=== PATIENT | female | born 1970 | race Asian ===

== ENCOUNTER 2016-09-26 11:07 | Inpatient (IN) | payer OTHER ==
[~2016-09-26] VITALS: Ht 157.5 cm; Wt 74.8 kg
--- NOTE | 2016-09-26 11:22 | ERA ---
ER Documentation Chief Complaint Date/Time DATE: 09/26/16 TIME: 11:22 Chief Complaint sent by pmd for low hgb and needs transfusion. pale and gen fatigue. 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 She is also complaining of mild, gradual onset of generalized headache which has had over the last several days. Generalized weakness but no visual changes, focal weakness or numbness. Denies chest pain, palpitations or shortness of breath. Denies abdominal pain, nausea, vomiting, diarrhea or constipation. No hematemesis or hematochezia. No melanotic stools. Denies dysuria, polyuria or flank pain. No relieving or exacerbating factors. No fevers or chills. ROS All systems reviewed and are negative except as per history of present illness. Medications Home Meds Reported Medications Pantoprazole* (Pantoprazole*) 40 Mg Tablet.dr, 40 MG PO AC BREAKFAST, TAB 09/26/16 Aspirin* (Aspirin* Chew) 81 Mg Tab.chew, 81 MG PO DAILY, TAB.CHEW 09/26/16 Ruxolitinib Phosphate (Jakafi) 10 Mg Tablet, 10 MG PO BID, TAB 09/26/16 Warfarin Sodium* (Coumadin*) 10 Mg Tablet, 10 MG PO DAILY, TAB 09/26/16 Allergies Allergies: Coded Allergies: No Known Allergy (Unverified , 09/26/16) PMhx/Soc Reviewed in chart. As per HPI. Hx Alcohol Use: No Hx Substance Use: No Hx Tobacco Use: No FmHx No stroke or cancer Physical Exam Vitals Vital Signs Date Time Temp Pulse Resp B/P Pulse Ox O2 Delivery O2 Flow Rate FiO2 09/26/16 13:40 98.4 71 20 109/76 99 Room Air 09/26/16 11:40 98.2 78 21 113/70 99 Room Air 09/26/16 11:08 98.2 92 21 113/70 99 Physical Exam Const: Alert, anxious but in no acute distress. Head: Atraumatic Eyes: Pale Conjunctiva ENT: Normal External Ears, Nose and Mouth. Neck: Full range of motion. No meningismus. Resp: Clear to auscultation bilaterally Cardio: Regular rate and rhythm, no murmurs Abd: Soft, non tender, non distended. Normal bowel sounds. Rectal exam: Normal tone, brown stool. Skin: No petechiae or rashes Back: No midline or flank tenderness Ext: No cyanosis, or edema Neur: Awake and alert. Cranial nerves II through XII are grossly intact. No focal deficit. Psych: Patient appears anxious but not depressed. Result Diagram: 09/26/16 1131 09/26/16 1131 Results 24 hrs Laboratory Tests Test 09/26/16 11:31 09/26/16 13:27 Activated Partial Thromboplast Time 51.7Sec Alanine Aminotransferase (ALT/SGPT) 39IU/L Albumin 4.0g/dl Albumin/Globulin Ratio 1.29 Alkaline Phosphatase 135IU/L Ammonia 29umol/l Anion Gap 15 Aspartate Amino Transf (AST/SGOT) 43IU/L Basophils # 0.010^3/ul Basophils % 0.1% Blood Morphology Comment Blood Urea Nitrogen 13mg/dl Calcium Level 9.4mg/dl Carbon Dioxide Level 27mmol/L Chloride Level 105mmol/L Creatinine 0.86mg/dl Direct Bilirubin 0.00mg/dl Eosinophils # 0.110^3/ul Eosinophils % 1.7% Globulin 3.10g/dl Glucose Level 100mg/dl Hematocrit 25.0% Hemoglobin 8.4g/dl INR International Normalized Ratio 2.18 Indirect Bilirubin 1.4mg/dl Lymphocytes # 0.410^3/ul Lymphocytes % 12.8% Mean Corpuscular Hemoglobin 23.1pg Mean Corpuscular Hemoglobin Concent 33.5g/dl Mean Corpuscular Volume 69.0fl Mean Platelet Volume 7.7fl Monocytes # 0.110^3/ul Monocytes % 4.4% Neutrophils # 2.610^3/ul Neutrophils % 81.0% Nucleated Red Blood Cells # 0.110^3/ul Nucleated Red Blood Cells % 2.0/100WBC Platelet Count 40131^3/UL Potassium Level 4.4mmol/L Prothrombin Time 24.5Sec Prothrombin Time Ratio 1.9 Red Blood Count 3.6210^6/ul Red Cell Distribution Width 26.5% Sodium Level 143mmol/L Total Bilirubin 1.4mg/dl Total Protein 7.1g/dl White Blood Count 3.210^3/ul Stool Occult Blood NEGATIVE Current Medications Medications (Trade) Dose Ordered Sig/Alissa Route PRN Reason Start Time Stop Time Status Last Admin Dose Admin Ondansetron HCl (Zofran Inj) 4 mg BRIDGE ORDER PRN IV NAUSEA AND/OR VOMITING 09/26/16 15:30 09/27/16 15:29 Acetaminophen 650 mg 650 mg ER BRIDGE PRN PO MILD PAIN/FEVER 09/26/16 15:30 09/27/16 15:29 Dextrose/Sodium Chloride (D5-1/2ns) 1,000 ml @ 100 mls/hr Q10H IV 09/26/16 15:11 UNV IV Flush (NS 3 ml) 3 ml PER PROTOCOL IV 09/26/16 15:30 UNV Ondansetron HCl (Zofran Inj) 4 mg Q6H PRN IV NAUSEA AND/OR VOMITING 09/26/16 15:30 UNV Acetaminophen/ Hydrocodone Bitart ([place] (5/325)) 1 tab Q6H PRN PO MODERATE PAIN LEVEL 4-6 09/26/16 15:30 UNV Morphine Sulfate (morphine) 2 mg Q4H PRN IV SEVERE PAIN LEVEL 7-10 09/26/16 15:30 UNV Magnesium Hydroxide (Milk Of Mag) 30 ml DAILY PRN PO CONSTIPATION 09/26/16 15:30 UNV Bisacodyl (Dulcolax) 5 mg DAILY PRN PO CONSTIPATION 09/26/16 15:30 UNV Pantoprazole (Protonix Tab) 40 mg DAILY@06 PO 09/27/16 06:00 UNV Ferrous Sulfate (Ferrous Sulfate (Ec)) 325 mg TID PO 09/26/16 21:00 UNV Miscellaneous Information 10 mg BID PO 09/26/16 21:00 UNV Procedures/MDM DOCUMENTS REVIEWED: ED nurse, medical records from [facility]. 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 History of esophageal varices but heme negative without evidence of GI bleeding. Anemia with significant hemoglobin drop from 12.7 on 08/06/2016 2 8.4 today, likely secondary to myeloproliferative disorder. Cephalgia of uncertain etiology. No CT evidence of bleed, stroke or infarct. Headache not consistent with subarachnoid hemorrhage, meningitis or encephalitis hence lumbar puncture not indicated. Patient will be admitted to [facility] for further evaluation and management. Counseled patient and family regarding diagnosis, diagnostic results and plan for admission. CALLS/CONSULTS: Time 13:45, Dr. Lopez, Recommends admission to [facility] a GI consult with Dr. Cisse CALLS/CONSULTS: Time 14:00, Dr. Cisse, will consult. PATIENT CARE TRANSITIONED: Time: 14:00, Dr. Lopez. Departure Diagnosis: Primary Impression: Severe anemia Additional Impressions: Myeloproliferative disorder Budd-Chiari syndrome Liver cirrhosis Qualified Code: K74.60 - Cirrhosis of liver without ascites, unspecified hepatic cirrhosis type Condition: Serious KARL BECKWITH MD Sep 26, 2016 11:22
[2016-09-26 11:47] LABS: BASOPHILS % 0.1 % (0.0-2.0); EOSINOPHILS # 0.1 10^3/ul (0.0-0.5); EOSINOPHILS % 1.7 % (0.0-7.0); HEMOGLOBIN 8.4 g/dl (12.0-16.0); LYMPHOCYTES # 0.4 10^3/ul (0.8-2.9); LYMPHOCYTES % 12.8 % (15.0-51.0); MEAN CORPUSCULAR HEMOGLOBIN 23.1 pg (29.0-33.0); MEAN CORPUSCULAR HGB CONC 33.5 g/dl (32.0-37.0); MEAN PLATELET VOLUME 7.7 fl (7.4-10.4); MONOCYTE # 0.1 10^3/ul (0.3-0.9); MONOCYTES % 4.4 % (0.0-11.0); NEUTROPHIL # 2.6 10^3/ul (1.6-7.5); PLATELET COUNT 223 10^3/UL (140-440); RED BLOOD COUNT 3.62 10^6/ul (4.20-5.40); RED CELL DISTRIBUTION WIDTH 26.5 % (11.5-14.5); UNCORRECTED WBC 3.2 10^3/ul (4.8-10.8); WHITE BLOOD COUNT 3.2 10^3/ul (4.8-10.8)
[2016-09-26 11:48] LABS: CONDITION 1; LH ANALYZER COMMENTS 1; NUCLEATED RED BLOOD CELLS # 0.1 10^3/ul (0.0-0.0); SUSPECT 1
[2016-09-26 11:53] LABS: INR 2.18; PROTIME 24.5 Sec (12.2-14.2); PT RATIO 1.9
[2016-09-26 11:54] LABS: PARTIAL THROMBOPLASTIN TIME 51.7 Sec (25.0-35.0)
[2016-09-26 11:57] LABS: POTASSIUM 4.4 mmol/L (3.5-5.1)
[2016-09-26 11:59] LABS: ALBUMIN/GLOBULIN RATIO 1.29; BILIRUBIN,INDIRECT 1.4 mg/dl (0-1.1); BILIRUBIN,TOTAL 1.4 mg/dl (0.2-1.3); CREATININE 0.86 mg/dl (0.44-1.00); TOTAL PROTEIN 7.1 g/dl (6.1-8.1)
[2016-09-26 12:00] LABS: CALCIUM 9.4 mg/dl (8.4-10.2)
[2016-09-26] MEDS ORDERED: WARF10TA PO (12:04)
[2016-09-26] MEDS ORDERED: PANT40TA4 PO (12:05)
[2016-09-26] MEDS ORDERED: ASPI81TA3 PO (12:05)
[2016-09-26] MEDS ORDERED: RUXO10TA PO (12:05)
--- NOTE | 2016-09-26 13:34 | RADRPT ---
PROCEDURE: CT Head without contrast. CLINICAL INDICATION: Headaches TECHNIQUE: The study was performed utilizing a GE 64-slice multidetector CT scanner. Direct spiral axial CT images of the brain were obtained from the vertex to the skull base without contrast. The CTDI vol is 44.19 mGy and the DLP is 720.23 mGy-cm. The images were reviewed on a PACS workstation. COMPARISON: No prior studies are available for comparison. FINDINGS: The ventricles and cortical sulci are within normal limits. The garcia-white matter differentiation i s maintained. No intra or extra-axial fluid collection or mass effect or shift in the midline struc tures is seen. The visualized paranasal sinuses, mastoid air cells, orbits, and calvarium are unrem arkable. IMPRESSION: Unremarkable CT of the head without contrast. RPTAT: HPNM Physician Avi Date Time Electronically viewed and signed by Physician Avi on 09/26/2016 13:34 /
[2016-09-26] MEDS ORDERED: BISACODYL (EC) 5 MG TAB PO PRN (15:30)
[2016-09-26] MEDS ORDERED: ONDANSETRON 4 MG INJ IV PRN ×2 (15:30)
[2016-09-26] MEDS ORDERED: MAGNESIUM HYDROXIDE 30ML CUP PO PRN (15:30)
[2016-09-26] MEDS ORDERED: morphine 2 MG INJ IV PRN (15:30)
[2016-09-26] MEDS ORDERED: ACETAMINOPHEN 325 MG TAB PO PRN (15:30)
[2016-09-26] MEDS ORDERED: NACL 0.9% 3 ML SYG IV SCH (15:30)
[2016-09-26] MEDS: DEXTROSE 5%-0.45% NACL 1,000 ML IV SCH (15:44)
[2016-09-26 16:05] VITALS: TEMP 98.6
[2016-09-26] MEDS ORDERED: SOD CHLORIDE 0.9% 250 ML IV* ONE (16:06)
[2016-09-26] MEDS ORDERED: FUROSEMIDE 40 MG INJ IV SCH (16:30)
[2016-09-26 16:34] LABS: IRON 81 ug/dl (35-150)
[2016-09-26 16:42] LABS: RETICULOCYTE COUNT % 3.1 % (0.5-1.5)
[2016-09-26 16:43] LABS: TOTAL IRON BINDING CAPACITY 225 ug/dl (241-421)
[2016-09-26 16:51] VITALS: BMI 39.1
[2016-09-26 17:04] VITALS: BP 114/74; PULSE 87; RESP 18
[2016-09-26] MEDS: HYDROCODONE/APAP (5/325) TAB PO PRN (17:20)
--- NOTE | 2016-09-26 18:08 | CONS ---
Date/Time of Note Date/Time of Note DATE: 09/26/16 TIME: 17:49 Assessment/Plan Assessment/Plan Chief Complaint/Hosp Course 45 yo with myeloproliferative disorder, currently on Jakafi 10mg BID for her splenomegaly and MDS. Pt presents with worsening weakness and is found to have a Hg 8.4. Per her records patient's baseline Hg is around 12. Her Hg has dropped to 8 and this is indicative of progressive disease. given that she does appear to have symptomatic anemia, I agree with the 1 units of PRBC. Also given her young age and advanced disease, she most certainly should be evaluate for a bone marrow transplant if she has not been evaluate already. I will attempt to reach Dr. Mckee on Wednesday to see what work up she has had already. -given she is still symptomatic from her anemia will transfuse 1 more unit of PRBC -hold Jakafi for now until I speak with her primary oncologist -will need evaluate at a tertiary care center for bone marrow transplantation as her disease her progressing -hold Aspirin and Warfarin for her h/o Budd Chiari syndrome until we are sure patient has no evidence of GO BLeed. It is noted that with her active Myeloproliferative disorder, pt is at increased risk for recurrent clot. -will perform an anemia workup to rule out other causes of her anemia (eg iron deficiency, Vitb12/folate deficiency, hemolysis, ect) -given h/o varices, appreciate GI consult to evaluate for GI bleed contributing to her anemia -will check iron studies Problems: Consultation Date/Type/Reason Admit Date/Time Sep 26, 2016 at 15:16 Date of Consultation: Sep 26, 2016 Type of Consultation: Hematology Reason for Consultation myelodysplastic syndrome Referring Provider: LEIA HERNANDEZ NP Hx of Present Illness 45-year-old female with a history of myeloproliferative disorder diagnosed in 2013 that was being treated at [facility] by Uli Mckee. Pt is currently on Jakafi for her splenomegaly and MDS. 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 She is currently on aspirin and warfarin. She also has a history of cirrhosis and esophageal varices. She presents to our ER with gradually worsening weakness. In the ER she was noted to have a Hg of 8.4. 1 unit of PRBCs has been ordered for her. Constitutional: other (weakness), poor po Eyes: no complaints ENT: no complaints Respiratory: other (dyspnea on exertion) Cardiovascular: no complaints Gastrointestinal: no complaints Genitourinary: no complaints Musculoskeletal: no complaints Skin: no complaints Neurologic: no complaints Endocrine: no complaints Past Medical History cirrhosis ascites splenomegaly hypothyroidism s/p TIPS 2014 Budd- Chiari syndrome Family History Significant Family History: no pertinent family hx Social History Alcohol Use: none Smoking Status: Never smoker Drug Use: none Exam/Review of Systems Vital Signs Vitals Vital Signs Date Time Temp Pulse Resp B/P Pulse Ox O2 Delivery O2 Flow Rate FiO2 09/26/16 17:04 99.0 87 18 114/74 99 Room Air Exam Constitutional: alert, oriented Psych: no complaints Head: normocephalic Eyes: nl conjunctiva ENMT: nl external ears & nose, nl lips & teeth Neck: non-tender, supple Respiratory: clear to auscultation, normal air movement Cardiovascular: nl pulses, regular rate and rhythm Gastrointestinal: soft Musculoskeletal: nl extremities to inspection, nl gait and stance Extremities: normal pulses Neurological: MASONRY INSTALLER II-XII intact Results Result Diagram: 09/26/16 1131 09/26/16 1131 Results 24 hrs Laboratory Tests Test 09/26/16 11:31 09/26/16 13:27 Absolute Reticulocyte Count 0.109 Activated Partial Thromboplast Time 51.7 H Alanine Aminotransferase (ALT/SGPT) 39 Albumin 4.0 Albumin/Globulin Ratio 1.29 Alkaline Phosphatase 135 H Ammonia 29 Anion Gap 15 Aspartate Amino Transf (AST/SGOT) 43 Basophils # 0.0 Basophils % 0.1 Blood Morphology Comment Blood Urea Nitrogen 13 Calcium Level 9.4 Carbon Dioxide Level 27 Chloride Level 105 Creatinine 0.86 Direct Bilirubin 0.00 Eosinophils # 0.1 Eosinophils % 1.7 Ferritin 116.0 Folate 14.0 Globulin 3.10 Glucose Level 100 Hematocrit 25.0 L Hemoglobin 8.4 L INR International Normalized Ratio 2.18 Indirect Bilirubin 1.4 H Iron Level 81 Lactate Dehydrogenase 788 H Lymphocytes # 0.4 L Lymphocytes % 12.8 L Mean Corpuscular Hemoglobin 23.1 L Mean Corpuscular Hemoglobin Concent 33.5 Mean Corpuscular Volume 69.0 L Mean Platelet Volume 7.7 Monocytes # 0.1 L Monocytes % 4.4 Neutrophils # 2.6 Neutrophils % 81.0 H Nucleated Red Blood Cells # 0.1 H Nucleated Red Blood Cells % 2.0 H Percent Iron Saturation 36 Percent Reticulocyte Count 3.1 H Platelet Count 223 Potassium Level 4.4 Prothrombin Time 24.5 H Prothrombin Time Ratio 1.9 Red Blood Count 3.62 L Red Cell Distribution Width 26.5 H Sodium Level 143 Total Bilirubin 1.4 H Total Iron Binding Capacity 225 L Total Protein 7.1 Vitamin B12 Level 950 H Vitamin D 1,25-Dihydroxy 60.7 White Blood Count 3.2 L Stool Occult Blood NEGATIVE Medications Medications Current Medications Dextrose/Sodium Chloride (D5-1/2ns) 1,000 ml @ 100 mls/hr Q10H IV Last administered on 09/26/16 15:44; Admin Dose 100 MLS/HR; Start 09/26/16 at 15:11 Ondansetron HCl (Zofran Inj) 4 mg Q6H PRN IV NAUSEA AND/OR VOMITING; Start 07/02 at 15:30 Acetaminophen/ Hydrocodone Bitart ([place] (5/325)) 1 tab Q6H PRN PO MODERATE PAIN LEVEL 4-6 Last administered on 09/26/16 17:20; Admin Dose 1 TAB; Start 07/02 at 15:30 Morphine Sulfate (morphine) 2 mg Q4H PRN IV SEVERE PAIN LEVEL 7-10; Start 09/26 at 15:30 Magnesium Hydroxide (Milk Of Mag) 30 ml DAILY PRN PO CONSTIPATION; Start at 15:30 Bisacodyl (Dulcolax) 5 mg DAILY PRN PO CONSTIPATION Last administered on 17:19; Admin Dose 5 MG; Start 09/26/16 at 15:30 Pantoprazole (Protonix Tab) 40 mg DAILY@06 PO ; Start 09/27/16 at 06:00 Ferrous Sulfate 325 mg 325 mg TID PO ; Start 09/26/16 at 21:00 Sodium Chloride (NS) 250 ml @ 0 mls/hr Q0M ONCE IV* ; Start 09/26/16 at 16:06; Stop 09/26/16 at 16:07 Furosemide (Lasix) 10 mg ONCE IV ; Start 09/26/16 at 16:30; Stop 09/27/16 at 16: 29 Influenza Virus Vaccine (Fluzone) 0.5 ml ONCE ONCE IM* ; Start 09/27/16 at 09:00 ; Stop 09/27/16 at 09:01 QUE LYONS M.D. Sep 26, 2016 17:59
--- NOTE | 2016-09-26 18:33 | HP ---
DATE OF ADMISSION: 09/26/2016 TIME OF EVALUATION: 1500 REASON FOR ADMISSION: Sent in by primary MD for a low hemoglobin, generalized fatigue. CONSULTATIONS: 1. Dr. Marilyn Cisse, Gastroenterology. 2. Dr. Becky Almaraz, Hematology. HISTORY OF PRESENT ILLNESS: This is a 45-year-old female from [facility] with past medical history of Budd-Chiari syndrome, JAK2 myeloproliferative disorder, ascites, splenomegaly, and iron deficiency who had a TIPS procedure in 2013 in [facility] with a redo of stent thrombosis on 06/16/2015 and 07/23/2015, who is currently on aspirin and warfarin, who came to the emergency room because of feeling of generalized fatigue, headache, and poor appetite. As per the patient , she has been getting her care regularly at [facility]. However, because of change in insurance, the patient has not been getting any followup at [facility]. The patient also verbalized that she has not been taking her Jakafi medication for the past 20 days. The patient denied any hematemesis, melena or hematochezia. The patient denied any dysuria or hematuria. She denied any vaginal bleeding. The patient verbalized that she has been amenorrheic since her TIPS. The patient was complaining of low urine output, probably because of poor oral intake. The patient denied any fevers, chills, nausea or vomiting, abdominal pain, diarrhea or constipation. In the emergency room at [facility], the patient was found to have microcytic, hypochromic anemia with a hemoglobin and hematocrit of 8.4 and 25.0 respectively. The patient's platelet count was 223. The patient's renal function was within normal limits. The patient had an INR of 2.18. The patient 's stool for OB x1 was negative. The patient's vital signs were within normal limits. The patient underwent a CT scan of the brain in the emergency room, showed no acute intracranial findings. PAST MEDICAL HISTORY: JAK2 myeloproliferative disorder, splenomegaly, ascites, liver cirrhosis, Budd-Chiari syndrome. PAST SURGICAL HISTORY: TIPS procedure. HOME MEDICATIONS: 1. Ruxolitinib phosphate 10 mg p.o. b.i.d. 2. Warfarin 10 mg p.o. daily. 3. Aspirin 81 mg p.o. daily. 4. Pantoprazole 40 mg p.o. before breakfast. ALLERGIES: NO KNOWN DRUG ALLERGIES. SOCIAL HISTORY: The patient is originally from [facility]. She recently migrated to the [facility] app 6 months ago. The patient lives with her and 4 kids. No history of tobacco, alcohol or illicit drug use. REVIEW OF SYSTEMS: A 12-point review of systems were made and review of systems are negative other than what is mentioned in history of present illness. PHYSICAL EXAMINATION: VITAL SIGNS: Temperature 98.4, pulse is 71, respiratory rate 20, blood pressure 109/76, oxygen saturation 99% on room air. GENERAL: This is a well-built, pale-looking female lying in bed in no apparent distress. HEENT: Head normocephalic and atraumatic. Eyes: Anicteric sclerae. Conjunctivae clear. ENT: Nasal septum is midline. Oral mucosa is dry. NECK: Supple. JVD noticed. RESPIRATORY: Bilaterally diminished breath sounds. No adventitious breath sounds heard. No use of accessory muscles of respiration. CARDIAC: Regular rate and rhythm. No murmurs heard. GASTROINTESTINAL: Abdomen soft, nontender. Bowel sounds hypoactive in all 4 quadrants. GENITOURINARY: Deferred. EXTREMITIES: No cyanosis, no clubbing, no edema. Peripheral pulses are palpable. NEUROLOGIC: The patient is awake, alert and oriented. Cranial nerves are grossly intact. LABORATORY AND DIAGNOSTIC DATA: WBC 3.2, hemoglobin 8.4, hematocrit 25.0, platelet count 223. Sodium 142, potassium 4.4, chloride 105, carbon dioxide 27 , anion gap 15, BUN 13, creatinine 0.86, glucose 100, calcium 9.4, total bilirubin 1.4, direct bilirubin 1.4, AST 43, ALT 39, alkaline phosphatase 135, ammonia 29, total protein 7.1, albumin 4.0. PT 24.5, INR 2.188, PTT 51.7. Stool for OB x1 negative. Brain CT scan. Unremarkable CT of the head without contrast. IMPRESSION: This is a 45-year-old female with a past medical history of Budd- Chiari syndrome, status post TIPS and underlying JAK2 myeloproliferative disorder who came to the emergency room with vague complaints of generalized weakness, fatigue, poor appetite and who was found to have anemia, who will be admitted here for further treatment and evaluation. ASSESSMENT AND PLAN: 1. Microcytic, hypochromic anemia. 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 A gastroenterology consult will be called on this patient. The patient's stool for OB x1 was negative. However , the patient has an extensive history of liver problems. Gastroenterology will be involved in the patient's case. The patient will be started on proton pump inhibitors. The patient's anticoagulation will be put on hold. 2. Budd-Chiari syndrome. Status post TIPS. Gastroenterology consult will be obtained. The patient's ammonia level is within normal limits. We will monitor the patient closely. 3. JAK2 myeloproliferative disorder. The patient was on anticoagulation and Jakafi as per the instruction of speech language pathologist prn at [facility]. The patient's anticoagulation will be put on hold because of underlying anemia and further evaluation by gastroenterology. A hematology consult will also be called on this patient. Plan. The patient will be admitted to inpatient medical/surgical floor. The patient will be started on deep venous thrombosis prophylaxis with bilateral sequential compression devices. The patient will be started on gastrointestinal prophylaxis with Protonix. The patient will remain a FULL CODE. Activities will be as tolerated. The patient was started on a full liquid diet. The rest of the patient's management will be based on the clinical course, the results of diagnostic studies, and inputs from consultants. Based on the patient's clinical presentation, the patient most probably requires at least a 2 midnights' stay for further management and evaluation of her clinical presentation. The case and management of this patient was fully discussed with Dr. Murphy. Approximately 60 minutes was spent on the history and physical on this patient. LEIA MURPHY MD, AM/GALILEO Conf#: [id number] DID#: [id number]
[2016-09-26 19:12] LABS: ADD UMIC NO; URINE BILIRUBIN (Dip) NEGATIVE (NEGATIVE); URINE BLOOD (Dip) NEGATIVE (NEGATIVE); URINE COLOR LT. YELLOW (YELLOW); URINE GLUCOSE (Dip) NEGATIVE (NEGATIVE); URINE KETONES (Dip) NEGATIVE (NEGATIVE); URINE LEUKOCYTE ESTERASE (Dip) NEGATIVE (NEGATIVE); URINE NITRITE (Dip) NEGATIVE (NEGATIVE); URINE TOTAL PROTEIN (Dip) NEGATIVE (NEGATIVE); URINE UROBILINOGEN (Dip) 4.0 E.U./dL (0.1-1.0)
[2016-09-26 20:03] VITALS: BP 98/60; RESP 18
[2016-09-26] MEDS: FERROUS SULFATE (EC) 325 MG TAB PO SCH (20:40)
[2016-09-26] MEDS ORDERED: RUXOLITINIB PHOSPHATE 10 MG PO SCH (21:00)
[2016-09-27] MEDS: HYDROCODONE/APAP (5/325) TAB PO PRN ×2 (00:38→11:15)
[2016-09-27] MEDS: DEXTROSE 5%-0.45% NACL 1,000 ML IV SCH ×4 (01:11→21:11)
[2016-09-27] MEDS: PANTOPRAZOLE (EC) 40 MG TAB PO SCH (06:08)
[2016-09-27 06:45] LABS: BASOPHILS % 0.2 % (0.0-2.0); EOSINOPHILS # 0.1 10^3/ul (0.0-0.5); EOSINOPHILS % 1.9 % (0.0-7.0); HEMATOCRIT 25.4 % (37.0-47.0); HEMOGLOBIN 8.8 g/dl (12.0-16.0); LYMPHOCYTES # 0.5 10^3/ul (0.8-2.9); LYMPHOCYTES % 16.8 % (15.0-51.0); MEAN CORPUSCULAR HEMOGLOBIN 24.5 pg (29.0-33.0); MEAN CORPUSCULAR HGB CONC 34.5 g/dl (32.0-37.0); MEAN CORPUSCULAR VOLUME 71.1 fl (82.0-101.0); MEAN PLATELET VOLUME 7.7 fl (7.4-10.4); MONOCYTE # 0.2 10^3/ul (0.3-0.9); MONOCYTES % 4.9 % (0.0-11.0); NEUTROPHIL # 2.4 10^3/ul (1.6-7.5); NEUTROPHILS % 76.2 % (39.0-77.0); PLATELET COUNT 235 10^3/UL (140-440); RED BLOOD COUNT 3.57 10^6/ul (4.20-5.40); RED CELL DISTRIBUTION WIDTH 28.1 % (11.5-14.5); UNCORRECTED WBC 3.2 10^3/ul (4.8-10.8); WHITE BLOOD COUNT 3.2 10^3/ul (4.8-10.8)
[2016-09-27 06:54] LABS: CONDITION 1; LH ANALYZER COMMENTS 1; NUCLEATED RED BLOOD CELLS # 0.1 10^3/ul (0.0-0.0); SUSPECT 1
[2016-09-27 07:04] LABS: ALBUMIN 3.8 g/dl (3.3-4.9)
[2016-09-27 07:05] LABS: CHOL/HDL RATIO 3.8 RATIO; MAGNESIUM 1.9 mg/dl (1.7-2.5); PHOSPHORUS 3.2 mg/dl (2.5-4.9); POTASSIUM 3.9 mmol/L (3.5-5.1)
[2016-09-27 07:07] LABS: ALBUMIN/GLOBULIN RATIO 1.22; BILIRUBIN,INDIRECT 1.7 mg/dl (0-1.1); BILIRUBIN,TOTAL 1.7 mg/dl (0.2-1.3); CREATININE 0.62 mg/dl (0.44-1.00); TOTAL PROTEIN 6.9 g/dl (6.1-8.1)
[2016-09-27 07:08] LABS: CALCIUM 8.4 mg/dl (8.4-10.2); THYROID STIMULATING HORMONE 2.18 MIU/L (0.465-4.680)
[2016-09-27 07:30] VITALS: BP 102/64; RESP 18
[2016-09-27] MEDS ORDERED: INFLUENZA VIRUS VACCINE 0.5 ML SYG IM* ONE (09:00)
[2016-09-27] MEDS: FERROUS SULFATE (EC) 325 MG TAB PO SCH ×3 (09:10→21:21)
--- NOTE | 2016-09-27 10:36 | PN ---
Date/Time of Note Date/Time of Note DATE: 09/27/16 TIME: 10:35 Assessment/Plan VTE Prophylaxis VTE Prophylaxis Intervention: SCD's Lines/Catheters IV [facility] Peripheral IV Assessment/Plan Chief Complaint/Hosp Course 1. Microcytic hypochromic anemia. 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 Status post 1 unit of PRBC transfusion. The patient being followed by hematology and gastroenterology. Anticoagulation on hold. Stool for occult blood 1 negative. Will resume anticoagulation since the patient has no active evidence of bleeding, unless gastroenterology is planning on any procedures. 2. Budd-Chiari syndrome. Status post TIPS. The patient being followed by gastroenterology and hematology. 3. JAK2 myeloproliferative disorder. The patient takes Jakafi as outpatient. This is on hold since the patient does not have any supplies. The hospital does not carry this medicine. Being followed by hematology. 4. Fluids, electrolytes, and nutrition. On a full liquid diet. 5. DVT prophylaxis. Bilateral sequential compression devices. 6. Gastrointestinal prophylaxis. Proton pump inhibitors. 7. Plan. Continue recommendations of hematology and gastroenterology. Resume anticoagulation if cleared by gastroenterology. Monitor in house. Case discussed with Dr. Lopez. Problems: Subjective 24 Hr Interval Summary Free Text/Dictation Denies any headache. Denies any obvious bleeding. Exam/Review of Systems Vital Signs Vitals Vital Signs Date Time Temp Pulse Resp B/P Pulse Ox O2 Delivery O2 Flow Rate FiO2 09/27/16 07:30 97.6 77 18 102/64 99 09/26/16 17:04 Room Air Intake and Output 09/26/16 09/26/16 09/27/16 14:59 22:59 06:59 Intake Total 120 ml 1900 ml Output Total 600 ml 600 ml Balance -480 ml 1300 ml Exam GENERAL: This is a well-built, pale-looking female lying in bed in no apparent distress. HEENT: Head normocephalic and atraumatic. Eyes: Anicteric sclerae. Conjunctivae clear. ENT: Nasal septum is midline. Oral mucosa is dry. NECK: Supple. JVD noticed. RESPIRATORY: Bilaterally diminished breath sounds. No adventitious breath sounds heard. No use of accessory muscles of respiration. CARDIAC: Regular rate and rhythm. No murmurs heard. GASTROINTESTINAL: Abdomen soft, nontender. Bowel sounds hypoactive in all 4 quadrants. GENITOURINARY: Deferred. EXTREMITIES: No cyanosis, no clubbing, no edema. Peripheral pulses are palpable. NEUROLOGIC: The patient is awake, alert and oriented. Cranial nerves are grossly intact. Results Result Diagram: 09/27/16 0500 09/27/16 0500 Results 24 hrs Laboratory Tests Test 09/26/16 11:31 09/26/16 13:27 09/26/16 16:35 09/27/16 05:00 Absolute Reticulocyte Count 0.109 Activated Partial Thromboplast Time 51.7 H Alanine Aminotransferase (ALT/SGPT) 39 38 Albumin 4.0 3.8 Albumin/Globulin Ratio 1.29 1.22 Alkaline Phosphatase 135 H 137 H Ammonia 29 25 Anion Gap 15 16 Aspartate Amino Transf (AST/SGOT) 43 37 Basophils # 0.0 0.0 Basophils % 0.1 0.2 Blood Morphology Comment Blood Urea Nitrogen 13 11 Calcium Level 9.4 8.4 Carbon Dioxide Level 27 27 Chloride Level 105 104 Creatinine 0.86 0.62 Direct Bilirubin 0.00 0.00 Eosinophils # 0.1 0.1 Eosinophils % 1.7 1.9 Ferritin 116.0 Folate 14.0 Globulin 3.10 3.10 Glucose Level 100 98 Hematocrit 25.0 L 25.4 L Hemoglobin 8.4 L 8.8 L Hemoglobin A1c 5.7 INR International Normalized Ratio 2.18 Indirect Bilirubin 1.4 H 1.7 H Iron Level 81 Lactate Dehydrogenase 788 H Lymphocytes # 0.4 L 0.5 L Lymphocytes % 12.8 L 16.8 Mean Corpuscular Hemoglobin 23.1 L 24.5 L Mean Corpuscular Hemoglobin Concent 33.5 34.5 Mean Corpuscular Volume 69.0 L 71.1 L Mean Platelet Volume 7.7 7.7 Monocytes # 0.1 L 0.2 L Monocytes % 4.4 4.9 Neutrophils # 2.6 2.4 Neutrophils % 81.0 H 76.2 Nucleated Red Blood Cells # 0.1 H 0.1 H Nucleated Red Blood Cells % 2.0 H 2.0 H Percent Iron Saturation 36 Percent Reticulocyte Count 3.1 H Platelet Count 223 235 Potassium Level 4.4 3.9 Prothrombin Time 24.5 H Prothrombin Time Ratio 1.9 Red Blood Count 3.62 L 3.57 L Red Cell Distribution Width 26.5 H 28.1 H Sodium Level 143 143 Thyroid Stimulating Hormone (TSH) 1.170 2.180 Total Bilirubin 1.4 H 1.7 H Total Iron Binding Capacity 225 L Total Protein 7.1 6.9 Vitamin B12 Level 950 H Vitamin D 1,25-Dihydroxy 60.7 White Blood Count 3.2 L 3.2 L Stool Occult Blood NEGATIVE Urine Bilirubin NEGATIVE Urine Clarity CLEAR Urine Color LT. YELLOW Urine Glucose NEGATIVE Urine Hemoglobin NEGATIVE Urine Ketones NEGATIVE Urine Leukocyte Esterase NEGATIVE Urine Nitrite NEGATIVE Urine Test NEGATIVE Urine Specific [place] 1.010 Urine Total Protein NEGATIVE Urine Urobilinogen 4.0 E.U./dL H Urine pH 7.0 Cholesterol Level 114 Cholesterol/HDL Ratio 3.8 Free Thyroxine 1.03 HDL Cholesterol 30 L LDL Cholesterol, Calculated 67 Lipase 92 Magnesium Level 1.9 Phosphorus Level 3.2 Triglycerides Level 87 Medications Medications Current Medications Dextrose/Sodium Chloride (D5-1/2ns) 1,000 ml @ 100 mls/hr Q10H IV Last administered on 09/27/16 03:39; Admin Dose 100 MLS/HR; Start 09/26/16 at 15:11 Ondansetron HCl (Zofran Inj) 4 mg Q6H PRN IV NAUSEA AND/OR VOMITING; Start 07/02 at 15:30 Acetaminophen/ Hydrocodone Bitart ([place] (5/325)) 1 tab Q6H PRN PO MODERATE PAIN LEVEL 4-6 Last administered on 09/27/16 00:38; Admin Dose 1 TAB; Start 07/02 at 15:30 Morphine Sulfate (morphine) 2 mg Q4H PRN IV SEVERE PAIN LEVEL 7-10; Start 09/26 at 15:30 Magnesium Hydroxide (Milk Of Mag) 30 ml DAILY PRN PO CONSTIPATION; Start at 15:30 Bisacodyl (Dulcolax) 5 mg DAILY PRN PO CONSTIPATION Last administered on 17:19; Admin Dose 5 MG; Start 09/26/16 at 15:30 Pantoprazole (Protonix Tab) 40 mg DAILY@06 PO Last administered on 09/27/16 06 :08; Admin Dose 40 MG; Start 09/27/16 at 06:00 Ferrous Sulfate 325 mg 325 mg TID PO Last administered on 09/27/16 09:10; Admin Dose 325 MG; Start 09/26/16 at 21:00 Sodium Chloride (NS) 250 ml @ 0 mls/hr Q0M ONCE IV* Last administered on 00:36; Admin Dose 0 MLS/HR; Start 09/26/16 at 16:06; Stop 09/26/16 at 16:07 Furosemide (Lasix) 10 mg ONCE IV Last administered on 09/27/16 03:41; Admin Dose 10 MG; Start 09/26/16 at 16:30; Stop 09/27/16 at 16:29 Influenza Virus Vaccine (Fluzone) 0.5 ml ONCE ONCE IM* ; Start 09/27/16 at 09:00 ; Stop 09/27/16 at 09:01 LEIA HERNANDEZ NP Sep 27, 2016 10:36
[2016-09-27] MEDS: ASPIRIN (EC) 81 MG TAB PO SCH (11:14)
[2016-09-27 11:33] LABS: INR 1.68; PROTIME 19.9 Sec (12.2-14.2); PT RATIO 1.6
--- NOTE | 2016-09-27 13:01 | CONS ---
Date/Time of Note Date/Time of Note DATE: 09/27/16 TIME: 12:50 Assessment/Plan Assessment/Plan Additional Assessment/Plan Assessment: * New onset anemia * Occult gastrointestinal bleeding * Rule out upper GI bleeding source * Rule out esophageal or gastric varices * History of Budd-Chiari syndrome * Post tips/patent as of June 2016 * History of hypothyroidism Plan: * Proceed with EGD tomorrow patient was informed of risks, benefits and alternatives and is agreeable to proceed. Consultation Date/Type/Reason Admit Date/Time Sep 26, 2016 at 15:16 Date of Consultation: Sep 27, 2016 Reason for Consultation Anemia Hx of Present Illness 45yo female interview via health care marketing specialist, she has complex past medical history of Budd-Chiari syndrome for which the patient has been chronically anticoagulated and underwent TIPS procedure twice as the first time stent clotted.. She also carries a diagnosis of myelodysplastic syndrome treated with Jakafi. The patient is hospitalized with significant anemia of relatively new onset. The patient was told to have occult blood positive stools but has not had any evidence of overt gastrointestinal or other organ bleeding. Given the need for anticoagulation the patient will be evaluated endoscopically. She states last endoscopy was in 2013. She does not remember specifics as to the presence of gastric or esophageal varices. She is also unable to elaborate as to the indications for tips but she appears to have never had significant gastrointestinal bleeding suggesting that TIPS was placed for management of intractable ascites. Constitutional: no complaints, other (weakness), poor po Eyes: no complaints ENT: no complaints Respiratory: other (dyspnea on exertion) Cardiovascular: no complaints Gastrointestinal: no complaints, other (Dyspepsia, pyrosis), pain (Occasional epigastric) Genitourinary: no complaints Musculoskeletal: no complaints Skin: no complaints Neurologic: no complaints Endocrine: no complaints Psychological: no complaints Past Medical History * Budd-Chiari syndrome * Myelodysplastic syndrome Medical History: other Past Surgical History * TIPS procedure Family History Significant Family History: no pertinent family hx Social History Alcohol Use: none Smoking Status: Never smoker Drug Use: none Exam/Review of Systems Vital Signs Vitals Vital Signs Date Time Temp Pulse Resp B/P Pulse Ox O2 Delivery O2 Flow Rate FiO2 09/27/16 07:30 97.6 77 18 102/64 99 09/26/16 17:04 Room Air Intake and Output 209/26/16 09/27/16 15:00 23:00 07:00 Intake Total 120 ml 1900 ml Output Total 600 ml 600 ml Balance -480 ml 1300 ml Exam Constitutional: alert, oriented, well developed Psych: nl mood/affect, no complaints Head: atraumatic, normocephalic Eyes: EOMI, PERRL, nl conjunctiva, nl lids, nl sclera ENMT: nl external ears & nose, nl lips & teeth, nl nasal mucosa & septum Neck: non-tender, supple Respiratory: clear to auscultation, normal air movement Cardiovascular: nl pulses, regular rate and rhythm Gastrointestinal: bowel sounds, nl liver, spleen, soft, splenomegaly, tender ( Mild epigastric tenderness), No ascites, No distended, No hepatomegaly, No mass, No rebound or guarding Musculoskeletal: nl extremities to inspection Extremities: normal pulses Skin: nl turgor, No rash or lesions Lymph: nl lymph nodes Results Result Diagram: 09/27/16 0500 09/27/16 0500 Results 24 hrs Laboratory Tests Test 09/26/16 13:27 09/26/16 16:35 09/27/16 05:00 09/27/16 10:40 Stool Occult Blood NEGATIVE Urine Bilirubin NEGATIVE Urine Clarity CLEAR Urine Color LT. YELLOW Urine Glucose NEGATIVE Urine Hemoglobin NEGATIVE Urine Ketones NEGATIVE Urine Leukocyte Esterase NEGATIVE Urine Nitrite NEGATIVE Urine Test NEGATIVE Urine Specific [place] 1.010 Urine Total Protein NEGATIVE Urine Urobilinogen 4.0 E.U./dL H Urine pH 7.0 Alanine Aminotransferase (ALT/SGPT) 38 Albumin 3.8 Albumin/Globulin Ratio 1.22 Alkaline Phosphatase 137 H Ammonia 25 Anion Gap 16 Aspartate Amino Transf (AST/SGOT) 37 Basophils # 0.0 Basophils % 0.2 Blood Morphology Comment Blood Urea Nitrogen 11 Calcium Level 8.4 Carbon Dioxide Level 27 Chloride Level 104 Cholesterol Level 114 Cholesterol/HDL Ratio 3.8 Creatinine 0.62 Direct Bilirubin 0.00 Eosinophils # 0.1 Eosinophils % 1.9 Free Thyroxine 1.03 Globulin 3.10 Glucose Level 98 HDL Cholesterol 30 L Hematocrit 25.4 L Hemoglobin 8.8 L Indirect Bilirubin 1.7 H LDL Cholesterol, Calculated 67 Lipase 92 Lymphocytes # 0.5 L Lymphocytes % 16.8 Magnesium Level 1.9 Mean Corpuscular Hemoglobin 24.5 L Mean Corpuscular Hemoglobin Concent 34.5 Mean Corpuscular Volume 71.1 L Mean Platelet Volume 7.7 Monocytes # 0.2 L Monocytes % 4.9 Neutrophils # 2.4 Neutrophils % 76.2 Nucleated Red Blood Cells # 0.1 H Nucleated Red Blood Cells % 2.0 H Phosphorus Level 3.2 Platelet Count 235 Potassium Level 3.9 Red Blood Count 3.57 L Red Cell Distribution Width 28.1 H Sodium Level 143 Thyroid Stimulating Hormone (TSH) 2.180 Total Bilirubin 1.7 H Total Protein 6.9 Triglycerides Level 87 White Blood Count 3.2 L INR International Normalized Ratio 1.68 Prothrombin Time 19.9 H Prothrombin Time Ratio 1.6 Medications Medications Current Medications Dextrose/Sodium Chloride (D5-1/2ns) 1,000 ml @ 100 mls/hr Q10H IV Last administered on 09/27/16 11:15; Admin Dose 100 MLS/HR; Start 09/26/16 at 15:11 Ondansetron HCl (Zofran Inj) 4 mg Q6H PRN IV NAUSEA AND/OR VOMITING; Start 07/02 at 15:30 Acetaminophen/ Hydrocodone Bitart ([place] (5/325)) 1 tab Q6H PRN PO MODERATE PAIN LEVEL 4-6 Last administered on 09/27/16 11:15; Admin Dose 1 TAB; Start 07/02 at 15:30 Morphine Sulfate (morphine) 2 mg Q4H PRN IV SEVERE PAIN LEVEL 7-10; Start 09/26 at 15:30 Magnesium Hydroxide (Milk Of Mag) 30 ml DAILY PRN PO CONSTIPATION; Start at 15:30 Bisacodyl (Dulcolax) 5 mg DAILY PRN PO CONSTIPATION Last administered on 17:19; Admin Dose 5 MG; Start 09/26/16 at 15:30 Pantoprazole (Protonix Tab) 40 mg DAILY@06 PO Last administered on 09/27/16 06 :08; Admin Dose 40 MG; Start 09/27/16 at 06:00 Ferrous Sulfate 325 mg 325 mg TID PO Last administered on 09/27/16 09:10; Admin Dose 325 MG; Start 09/26/16 at 21:00 Sodium Chloride (NS) 250 ml @ 0 mls/hr Q0M ONCE IV* Last administered on 00:36; Admin Dose 0 MLS/HR; Start 09/26/16 at 16:06; Stop 09/26/16 at 16:07 Furosemide (Lasix) 10 mg ONCE IV Last administered on 09/27/16 03:41; Admin Dose 10 MG; Start 09/26/16 at 16:30; Stop 09/27/16 at 16:29 Influenza Virus Vaccine (Fluzone) 0.5 ml ONCE ONCE IM* Last administered on 11:14; Admin Dose 0.5 ML; Start 09/27/16 at 09:00; Stop 09/27/16 at 09: 01 Aspirin (Halfprin) 81 mg DAILY PO Last administered on 09/27/16 11:14; Admin Dose 81 MG; Start 09/27/16 at 11:00 Warfarin Sodium (Coumadin) 5 mg ONCE@17 ONCE PO ; Start 09/27/16 at 17:00; Stop 09/27/16 at 17:01 EMMY EMMANUEL MD Sep 27, 2016 13:01
[2016-09-27] MEDS ORDERED: WARFARIN 5 MG TAB PO ONE (17:00)
[2016-09-27 20:07] VITALS: BP 116/65; RESP 16
[2016-09-28] VITALS (10 sets, daily range): BP systolic 87–109; BP diastolic 57–71; PULSE 70–80; RESP 14–20
[2016-09-28] MEDS: DEXTROSE 5%-0.45% NACL 1,000 ML IV SCH ×4 (01:29→17:11)
[2016-09-28 05:04] LABS: BASOPHILS % 0.3 % (0.0-2.0); EOSINOPHILS # 0.1 10^3/ul (0.0-0.5); EOSINOPHILS % 2.2 % (0.0-7.0); HEMATOCRIT 28.1 % (37.0-47.0); HEMOGLOBIN 9.5 g/dl (12.0-16.0); LYMPHOCYTES # 0.5 10^3/ul (0.8-2.9); LYMPHOCYTES % 16.1 % (15.0-51.0); MEAN CORPUSCULAR HEMOGLOBIN 24.8 pg (29.0-33.0); MEAN CORPUSCULAR HGB CONC 33.9 g/dl (32.0-37.0); MEAN CORPUSCULAR VOLUME 73.1 fl (82.0-101.0); MEAN PLATELET VOLUME 7.5 fl (7.4-10.4); MONOCYTE # 0.1 10^3/ul (0.3-0.9); MONOCYTES % 3.7 % (0.0-11.0); NEUTROPHIL # 2.5 10^3/ul (1.6-7.5); NEUTROPHILS % 77.7 % (39.0-77.0); PLATELET COUNT 233 10^3/UL (140-440); RED BLOOD COUNT 3.84 10^6/ul (4.20-5.40); RED CELL DISTRIBUTION WIDTH 28.1 % (11.5-14.5); UNCORRECTED WBC 3.2 10^3/ul (4.8-10.8); WHITE BLOOD COUNT 3.2 10^3/ul (4.8-10.8)
[2016-09-28 05:11] LABS: INR 1.54; PROTIME 18.6 Sec (12.2-14.2); PT RATIO 1.5
[2016-09-28 05:17] LABS: POTASSIUM 4.1 mmol/L (3.5-5.1)
[2016-09-28 05:19] LABS: CREATININE 0.67 mg/dl (0.44-1.00)
[2016-09-28 05:20] LABS: CALCIUM 8.8 mg/dl (8.4-10.2)
[2016-09-28 05:40] LABS: MAGNESIUM 1.8 mg/dl (1.7-2.5); PHOSPHORUS 3.2 mg/dl (2.5-4.9)
[2016-09-28 05:42] LABS: CONDITION 1; LH ANALYZER COMMENTS 1; NUCLEATED RED BLOOD CELLS # 0.1 10^3/ul (0.0-0.0); SUSPECT 1
[2016-09-28] MEDS: PANTOPRAZOLE (EC) 40 MG TAB PO SCH (06:33)
[2016-09-28] MEDS: ASPIRIN (EC) 81 MG TAB PO SCH (09:05)
[2016-09-28] MEDS: FERROUS SULFATE (EC) 325 MG TAB PO SCH ×3 (09:05→21:49)
--- NOTE | 2016-09-28 14:03 | CONS ---
Date/Time of Note Date/Time of Note DATE: 09/28/16 TIME: 14:00 Assessment/Plan Assessment/Plan Chief Complaint/Hosp Course 45 yo with myeloproliferative disorder, currently on Jakafi 10mg BID for her splenomegaly and MDS. Pt presents with worsening weakness and is found to have a Hg 8.4. Per her records patient's baseline Hg is around 12. Her Hg has dropped to 8 and this is indicative of progressive disease. given that she does appear to have symptomatic anemia, I agree with the 1 units of PRBC. Also given her young age and advanced disease, she most certainly should be evaluate for a bone marrow transplant if she has not been evaluate already. I will attempt to reach Dr. Mckee on Wednesday to see what work up she has had already. Anemia panel reveals normal iron studies, nor evidence of vit b12 or folate deficiency. 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 It is noted that with her active Myeloproliferative disorder, pt is at increased risk for recurrent clot. -will perform an anemia workup to rule out other causes of her anemia (eg iron deficiency, Vitb12/folate deficiency, hemolysis, ect) -given h/o varices, appreciate GI consult to evaluate for GI bleed contributing to her anemia -will check iron studies Problems: Consultation Date/Type/Reason Admit Date/Time Sep 26, 2016 at 15:16 Initial Consult Date 09/27/16 Type of Consultation: Hematology Reason for Consultation myeloproliferative disorder Referring Provider: LEIA HERNANDEZ NP 24 HR Interval Summary Free Text/Dictation pt received a 2nd unit of PRBCs yesterday. feels slightly better. Exam/Review of Systems Vital Signs Vitals Vital Signs Date Time Temp Pulse Resp B/P Pulse Ox O2 Delivery O2 Flow Rate FiO2 09/28/16 07:59 98.1 80 20 105/71 99 09/26/16 17:04 Room Air Intake and Output 09/27/16 09/27/16 09/28/16 15:00 23:00 07:00 Intake Total 600 ml 1640 ml 1780 ml Balance 600 ml 1640 ml 1780 ml Exam Constitutional: alert Psych: nl mood/affect, no complaints Head: normocephalic Eyes: nl conjunctiva ENMT: nl external ears & nose Neck: non-tender, supple Respiratory: clear to auscultation, normal air movement Cardiovascular: regular rate and rhythm Gastrointestinal: soft Musculoskeletal: nl extremities to inspection, nl gait and stance Extremities: normal pulses Neurological: PUBLIC HEALTH WORKER II-XII intact Results Result Diagram: 09/28/1643909/28/16439 Results 24 hrs Laboratory Tests Test 09/28/16 04:40 Anion Gap 13 Basophils # 0.0 Basophils % 0.3 Blood Morphology Comment Blood Urea Nitrogen 8 Calcium Level 8.8 Carbon Dioxide Level 26 Chloride Level 109 Creatinine 0.67 Eosinophils # 0.1 Eosinophils % 2.2 Glucose Level 103 Hematocrit 28.1 L Hemoglobin 9.5 L INR International Normalized Ratio 1.54 Lymphocytes # 0.5 L Lymphocytes % 16.1 Magnesium Level 1.8 Mean Corpuscular Hemoglobin 24.8 L Mean Corpuscular Hemoglobin Concent 33.9 Mean Corpuscular Volume 73.1 L Mean Platelet Volume 7.5 Monocytes # 0.1 L Monocytes % 3.7 Neutrophils # 2.5 Neutrophils % 77.7 H Nucleated Red Blood Cells # 0.1 H Nucleated Red Blood Cells % 2.0 H Phosphorus Level 3.2 Platelet Count 233 Potassium Level 4.1 Prothrombin Time 18.6 H Prothrombin Time Ratio 1.5 Red Blood Count 3.84 L Red Cell Distribution Width 28.1 H Sodium Level 144 White Blood Count 3.2 L Medications Medications Current Medications Dextrose/Sodium Chloride (D5-1/2ns) 1,000 ml @ 100 mls/hr Q10H IV Last administered on 09/28/16 11:37; Admin Dose 100 MLS/HR; Start 09/26/16 at 15:11 Ondansetron HCl (Zofran Inj) 4 mg Q6H PRN IV NAUSEA AND/OR VOMITING; Start 07/02 at 15:30 Acetaminophen/ Hydrocodone Bitart ([place] (5/325)) 1 tab Q6H PRN PO MODERATE PAIN LEVEL 4-6 Last administered on 09/27/16 11:15; Admin Dose 1 TAB; Start 07/02 at 15:30 Morphine Sulfate (morphine) 2 mg Q4H PRN IV SEVERE PAIN LEVEL 7-10; Start 09/26 at 15:30 Magnesium Hydroxide (Milk Of Mag) 30 ml DAILY PRN PO CONSTIPATION; Start at 15:30 Bisacodyl (Dulcolax) 5 mg DAILY PRN PO CONSTIPATION Last administered on 17:19; Admin Dose 5 MG; Start 09/26/16 at 15:30 Pantoprazole (Protonix Tab) 40 mg DAILY@06 PO Last administered on 09/28/16 06 :33; Admin Dose 40 MG; Start 09/27/16 at 06:00 Ferrous Sulfate (Ferrous Sulfate (Ec)) 325 mg TID PO Last administered on 09:05; Admin Dose 325 MG; Start 09/26/16 at 21:00 Aspirin (Halfprin) 81 mg DAILY PO Last administered on 09/28/16 09:05; Admin Dose 81 MG; Start 09/27/16 at 11:00 QUE LYONS M.D. Sep 28, 2016 14:02
[2016-09-28 14:36] LABS: PROTEIN, TOTAL 6.5 g/dL (6.1-8.1)
--- NOTE | 2016-09-28 15:33 | PN ---
Date/Time of Note Date/Time of Note DATE: 09/28/16 TIME: 15:30 Assessment/Plan VTE Prophylaxis VTE Prophylaxis Intervention: SCD's Lines/Catheters IV C[facility]ter Type (from [facility]): [place] Urinary Cath still in place: No Assessment/Plan Chief Complaint/Hosp Course Assessment and plan 1. Microcytic hypochromic anemia. Patient is with known history of underlying Budd-Chiari syndrome. Patient is status post one PRBC transfusion. Speeder Tender following. Continue with recommendations. Off anticoagulants at this time. Tentative plan for EGD 2. hx Budd-Chiari Syndrome. Patient is status post TIPS procedure. Follow up with nut and bolt assembler recommendations 3. Myeloproliferative disorder. Patient's Jakafi to be resumed. Speeder Tender. Follow-up with recommendations. DVT prophylaxis: SCDs GERD prophylaxis: PPI Disposition and plan: Tentative plan for tertiary [facility] evaluation for possibility of bone marrow transplant. Follow-up with hematology recommendations. Tentative plan for EGD today. We'll follow-up Discussed plan of care with Dr. Roman Problems: Subjective 24 Hr Interval Summary Free Text/Dictation Reports feeling generalized weakness. Exam/Review of Systems Vital Signs Vitals Vital Signs Date Time Temp Pulse Resp B/P Pulse Ox O2 Delivery O2 Flow Rate FiO2 09/28/16 07:59 98.1 80 20 105/71 99 09/26/16 17:04 Room Air Intake and Output 09/27/16 09/27/16 09/28/16 14:59 22:59 06:59 Intake Total 600 ml 1640 ml 1780 ml Balance 600 ml 1640 ml 1780 ml Exam General: No acute signs or symptoms of distress Eyes: pupils equal round, Anicteric sclera Neck: Supple nontender, no JVD Cardiac: S1, S2 auscultated, regular rhythm and rate Pulmonary: No coarse rhonchi or breathing auscultated GI: Abdomen soft nontender nondistended, bowel sounds active Extremities: No edema bilateral lower extremities Skin: Clean dry and intact Neurologic: Alert to person place and time and situation Results Result Diagram: 09/28/16 0440 09/28/16 0440 Results 24 hrs Laboratory Tests Test 09/28/16 04:40 Anion Gap 13 Basophils # 0.0 Basophils % 0.3 Blood Morphology Comment Blood Urea Nitrogen 8 Calcium Level 8.8 Carbon Dioxide Level 26 Chloride Level 109 Creatinine 0.67 Eosinophils # 0.1 Eosinophils % 2.2 Glucose Level 103 Hematocrit 28.1 L Hemoglobin 9.5 L INR International Normalized Ratio 1.54 Lymphocytes # 0.5 L Lymphocytes % 16.1 Magnesium Level 1.8 Mean Corpuscular Hemoglobin 24.8 L Mean Corpuscular Hemoglobin Concent 33.9 Mean Corpuscular Volume 73.1 L Mean Platelet Volume 7.5 Monocytes # 0.1 L Monocytes % 3.7 Neutrophils # 2.5 Neutrophils % 77.7 H Nucleated Red Blood Cells # 0.1 H Nucleated Red Blood Cells % 2.0 H Phosphorus Level 3.2 Platelet Count 233 Potassium Level 4.1 Prothrombin Time 18.6 H Prothrombin Time Ratio 1.5 Red Blood Count 3.84 L Red Cell Distribution Width 28.1 H Sodium Level 144 White Blood Count 3.2 L Medications Medications Current Medications Dextrose/Sodium Chloride (D5-1/2ns) 1,000 ml @ 100 mls/hr Q10H IV Last administered on 09/28/16 11:37; Admin Dose 100 MLS/HR; Start 09/26/16 at 15:11 Ondansetron HCl (Zofran Inj) 4 mg Q6H PRN IV NAUSEA AND/OR VOMITING; Start 07/02 at 15:30 Acetaminophen/ Hydrocodone Bitart ([place] (5/325)) 1 tab Q6H PRN PO MODERATE PAIN LEVEL 4-6 Last administered on 09/27/16 11:15; Admin Dose 1 TAB; Start 07/02 at 15:30 Morphine Sulfate (morphine) 2 mg Q4H PRN IV SEVERE PAIN LEVEL 7-10; Start 09/26 at 15:30 Magnesium Hydroxide (Milk Of Mag) 30 ml DAILY PRN PO CONSTIPATION; Start at 15:30 Bisacodyl (Dulcolax) 5 mg DAILY PRN PO CONSTIPATION Last administered on 17:19; Admin Dose 5 MG; Start 09/26/16 at 15:30 Pantoprazole (Protonix Tab) 40 mg DAILY@06 PO Last administered on 09/28/16 06 :33; Admin Dose 40 MG; Start 09/27/16 at 06:00 Ferrous Sulfate (Ferrous Sulfate (Ec)) 325 mg TID PO Last administered on 09:05; Admin Dose 325 MG; Start 09/26/16 at 21:00 Aspirin (Halfprin) 81 mg DAILY PO Last administered on 09/28/16t 09:05; Admin Dose 81 MG; Start 09/27/16 at 11:00 SHANNON LOPEZ Sep 28, 2016 15:33
[2016-09-28] MEDS ORDERED: LIDOCAINE 2% (SDV) 5 ML INJ ONE (18:25)
[2016-09-28] MEDS ORDERED: PROPOFOL 40 ML ONE (18:25)
[2016-09-29] MEDS: HYDROCODONE/APAP (5/325) TAB PO PRN ×2 (00:06→22:25)
[2016-09-29] MEDS: DEXTROSE 5%-0.45% NACL 1,000 ML IV SCH ×5 (03:11→23:11)
[2016-09-29] MEDS ORDERED: SUMATRIPTAN 6 MG/0.5 ML INJ SC ONE (06:00)
[2016-09-29] MEDS: PANTOPRAZOLE (EC) 40 MG TAB PO SCH (06:05)
[2016-09-29 07:08] VITALS: BP 113/66; RESP 20
[2016-09-29] MEDS: ASPIRIN (EC) 81 MG TAB PO SCH (08:39)
[2016-09-29] MEDS: FERROUS SULFATE (EC) 325 MG TAB PO SCH ×3 (08:39→20:18)
[2016-09-29 09:29] LABS: BASOPHILS % 0.1 % (0.0-2.0); EOSINOPHILS % 1.7 % (0.0-7.0); HEMATOCRIT 28.1 % (37.0-47.0); HEMOGLOBIN 9.5 g/dl (12.0-16.0); LYMPHOCYTES # 0.4 10^3/ul (0.8-2.9); LYMPHOCYTES % 14.1 % (15.0-51.0); MEAN CORPUSCULAR HEMOGLOBIN 24.9 pg (29.0-33.0); MEAN CORPUSCULAR HGB CONC 33.9 g/dl (32.0-37.0); MEAN CORPUSCULAR VOLUME 73.5 fl (82.0-101.0); MEAN PLATELET VOLUME 7.6 fl (7.4-10.4); MONOCYTE # 0.1 10^3/ul (0.3-0.9); MONOCYTES % 4.2 % (0.0-11.0); NEUTROPHIL # 2.4 10^3/ul (1.6-7.5); NEUTROPHILS % 79.9 % (39.0-77.0); PLATELET COUNT 248 10^3/UL (140-440); RED BLOOD COUNT 3.82 10^6/ul (4.20-5.40); RED CELL DISTRIBUTION WIDTH 28.8 % (11.5-14.5)
[2016-09-29 09:36] LABS: CONDITION 1; LH ANALYZER COMMENTS 1; NUCLEATED RED BLOOD CELLS # 0.1 10^3/ul (0.0-0.0); SUSPECT 1
--- NOTE | 2016-09-29 10:10 | PN ---
Date/Time of Note Date/Time of Note DATE: 09/29/16 TIME: 10:03 Assessment/Plan VTE Prophylaxis VTE Prophylaxis Intervention: SCD's Lines/Catheters IV [facility]ter Type (from [facility]): Peripheral IV Urinary Cath still in place: No Assessment/Plan Chief Complaint/Hosp Course Assessment and plan 1. Microcytic hypochromic anemia. Patient is with known history of underlying Budd-Chiari syndrome. Patient is status post one PRBC transfusion. Respiratory Scientist following. Continue with recommendations. Off anticoagulants at this time. s/p EGD. Will follow up results 2. hx Budd-Chiari Syndrome. Patient is status post TIPS procedure. Follow up with hospital food service worker recommendations 3. Myeloproliferative disorder. Patient's Jakafi to be resumed. Respiratory Scientist. Follow-up with recommendations. 4. Cephalgia. Will provide with analgesics. No focal deficit noted at this time DVT prophylaxis: SCDs GERD prophylaxis: PPI Disposition and plan: Tentative plan for tertiary [facility] evaluation for possibility of bone marrow transplant. H&H of note stable today. Status post EGD. Will follow up with results. Discharge when medically stable and cleared by consultants Discussed plan of care with Dr. Roman Problems: Subjective 24 Hr Interval Summary Free Text/Dictation With general weakness at this time. Reports having headache Exam/Review of Systems Vital Signs Vitals Vital Signs Date Time Temp Pulse Resp B/P Pulse Ox O2 Delivery O2 Flow Rate FiO2 09/29/16 07:08 97.3 76 20 113/66 96 09/28/16 20:30 Room Air 09/28/16 19:35 2.0 Intake and Output 09/28/16 09/28/16 09/29/16 15:00 23:00 07:00 Intake Total 1000 ml 460 ml 780 ml Balance 1000 ml 460 ml 780 ml Exam General: No acute signs or symptoms of distress Eyes: pupils equal round, Anicteric sclera Neck: Supple nontender, no JVD Cardiac: S1, S2 auscultated, regular rhythm and rate Pulmonary: No coarse rhonchi or breathing auscultated GI: Abdomen soft nontender nondistended, bowel sounds active Extremities: No edema bilateral lower extremities Skin: Clean dry and intact Neurologic: Alert to person place and time and situation Results Result Diagram: 09/29/16 0903 09/28/16 0440 Results 24 hrs Laboratory Tests Test 09/29/16 09:03 Basophils # 0.0 Basophils % 0.1 Blood Morphology Comment Eosinophils # 0.0 Eosinophils % 1.7 Hematocrit 28.1 L Hemoglobin 9.5 L Lymphocytes # 0.4 L Lymphocytes % 14.1 L Mean Corpuscular Hemoglobin 24.9 L Mean Corpuscular Hemoglobin Concent 33.9 Mean Corpuscular Volume 73.5 L Mean Platelet Volume 7.6 Monocytes # 0.1 L Monocytes % 4.2 Neutrophils # 2.4 Neutrophils % 79.9 H Nucleated Red Blood Cells # 0.1 H Nucleated Red Blood Cells % 2.0 H Platelet Count 248 Red Blood Count 3.82 L Red Cell Distribution Width 28.8 H White Blood Count 3.0 L Medications Medications Current Medications Dextrose/Sodium Chloride (D5-1/2ns) 1,000 ml @ 100 mls/hr Q10H IV Last administered on 09/29/16 06:56; Admin Dose 100 MLS/HR; Start 09/26/16 at 15:11 Ondansetron HCl (Zofran Inj) 4 mg Q6H PRN IV NAUSEA AND/OR VOMITING; Start 07/02 at 15:30 Acetaminophen/ Hydrocodone Bitart ([place] (5/325)) 1 tab Q6H PRN PO MODERATE PAIN LEVEL 4-6 Last administered on 09/29/16 00:06; Admin Dose 1 TAB; Start 07/02 at 15:30 Morphine Sulfate (morphine) 2 mg Q4H PRN IV SEVERE PAIN LEVEL 7-10; Start 09/26 at 15:30 Magnesium Hydroxide (Milk Of Mag) 30 ml DAILY PRN PO CONSTIPATION; Start at 15:30 Bisacodyl (Dulcolax) 5 mg DAILY PRN PO CONSTIPATION Last administered on 17:19; Admin Dose 5 MG; Start 09/26/16 at 15:30 Pantoprazole (Protonix Tab) 40 mg DAILY@06 PO Last administered on 09/29/16 06 :05; Admin Dose 40 MG; Start 09/27/16 at 06:00 Ferrous Sulfate (Ferrous Sulfate (Ec)) 325 mg TID PO Last administered on 08:39; Admin Dose 325 MG; Start 09/26/16 at 21:00 Aspirin (Halfprin) 81 mg DAILY PO Last administered on 09/29/16 08:39; Admin Dose 81 MG; Start 09/27/16 at 11:00 SHANNON LOPEZ Sep 29, 2016 10:10
[2016-09-29] MEDS ORDERED: BUTAL PO ONE ×2 (10:30)
[2016-09-29] MEDS ORDERED: ASA PO ONE ×2 (10:30)
[2016-09-29] MEDS ORDERED: CAFF PO ONE ×2 (10:30)
--- NOTE | 2016-09-29 11:35 | CONS ---
Date/Time of Note Date/Time of Note DATE: 09/29/16 TIME: 11:30 Assessment/Plan Assessment/Plan Additional Assessment/Plan Assessment: * New onset anemia * Occult gastrointestinal bleeding * EGD 09-28-16: 1. GI/IV Esophageal varices. 2. Gastritis with erosion. Biopsies obtained, r/out H. Pylori. 3. Antral gastric nodule. Biopsies obtained * History of Budd-Chiari syndrome * Post tips/patent as of June 2016 * History of hypothyroidism Plan: * Monitor H&H Q6 hrs, transfuse 2 units for Hgb < 7.5 * Advance diet as tolerated * Review pathology * Further recommendations depend on clinical course * Pt seen in collaboration with Dr. Cisse Consultation Date/Type/Reason Admit Date/Time Sep 26, 2016 at 15:16 Initial Consult Date 09/27/16 Type of Consultation: Gastroenterology Reason for Consultation Anemia Referring Provider: LEIA HERNANDEZ NP 24 HR Interval Summary Free Text/Dictation Lily diet Ambulating in mancini Exam/Review of Systems Vital Signs Vitals Vital Signs Date Time Temp Pulse Resp B/P Pulse Ox O2 Delivery O2 Flow Rate FiO2 09/29/16 07:08 97.3 76 20 113/66 96 09/28/16 20:30 Room Air 09/28/16 19:35 2.0 Intake and Output 09/28/16 09/28/16 09/29/16 15:00 23:00 07:00 Intake Total 1000 ml 460 ml 780 ml Balance 1000 ml 460 ml 780 ml Exam Constitutional: alert, oriented, well developed Psych: nl mood/affect, no complaints Head: atraumatic, normocephalic Eyes: EOMI, PERRL, nl conjunctiva, nl lids, nl sclera ENMT: nl external ears & nose, nl lips & teeth, nl nasal mucosa & septum Neck: non-tender, supple Respiratory: clear to auscultation, normal air movement Cardiovascular: nl pulses, regular rate and rhythm Gastrointestinal: bowel sounds, nl liver, spleen, soft, splenomegaly, tender ( Mild epigastric tenderness), No ascites, No distended, No hepatomegaly, No mass, No rebound or guarding Musculoskeletal: nl extremities to inspection Extremities: normal pulses Skin: nl turgor, No rash or lesions Lymph: nl lymph nodes Results Result Diagram: 09/29/16 0903 09/28/16 0440 Results 24 hrs Laboratory Tests Test 09/29/16 09:03 Basophils # 0.0 Basophils % 0.1 Blood Morphology Comment Eosinophils # 0.0 Eosinophils % 1.7 Hematocrit 28.1 L Hemoglobin 9.5 L Lymphocytes # 0.4 L Lymphocytes % 14.1 L Mean Corpuscular Hemoglobin 24.9 L Mean Corpuscular Hemoglobin Concent 33.9 Mean Corpuscular Volume 73.5 L Mean Platelet Volume 7.6 Monocytes # 0.1 L Monocytes % 4.2 Neutrophils # 2.4 Neutrophils % 79.9 H Nucleated Red Blood Cells # 0.1 H Nucleated Red Blood Cells % 2.0 H Platelet Count 248 Red Blood Count 3.82 L Red Cell Distribution Width 28.8 H White Blood Count 3.0 L Medications Medications Current Medications Dextrose/Sodium Chloride (D5-1/2ns) 1,000 ml @ 100 mls/hr Q10H IV Last administered on 09/29/16 10:44; Admin Dose 100 MLS/HR; Start 09/26/16 at 15:11 Ondansetron HCl (Zofran Inj) 4 mg Q6H PRN IV NAUSEA AND/OR VOMITING; Start 07/02 at 15:30 Acetaminophen/ Hydrocodone Bitart ([place] (5/325)) 1 tab Q6H PRN PO MODERATE PAIN LEVEL 4-6 Last administered on 09/29/16 00:06; Admin Dose 1 TAB; Start 07/02 at 15:30 Morphine Sulfate (morphine) 2 mg Q4H PRN IV SEVERE PAIN LEVEL 7-10; Start 09/26 at 15:30 Magnesium Hydroxide (Milk Of Mag) 30 ml DAILY PRN PO CONSTIPATION; Start at 15:30 Bisacodyl (Dulcolax) 5 mg DAILY PRN PO CONSTIPATION Last administered on 17:19; Admin Dose 5 MG; Start 09/26/16 at 15:30 Pantoprazole (Protonix Tab) 40 mg DAILY@06 PO Last administered on 09/29/16 06 :05; Admin Dose 40 MG; Start 09/27/16 at 06:00 Ferrous Sulfate (Ferrous Sulfate (Ec)) 325 mg TID PO Last administered on 08:39; Admin Dose 325 MG; Start 09/26/16 at 21:00 Aspirin (Halfprin) 81 mg DAILY PO Last administered on 09/29/16t 08:39; Admin Dose 81 MG; Start 09/27/16 at 11:00 BOBBY DELAROSA Sep 29, 2016 11:35
--- NOTE | 2016-09-29 11:57 | CONS ---
Date/Time of Note Date/Time of Note DATE: 09/29/16 TIME: 11:50 Assessment/Plan Assessment/Plan Chief Complaint/Hosp Course 45 yo with myeloproliferative disorder, currently on Jakafi 10mg BID for her splenomegaly and MDS. Pt presents with worsening weakness and is found to have a Hg 8.4. Per her records patient's baseline Hg is around 12. Her Hg has dropped to 8 and this is indicative of progressive disease. given that she does appear to have symptomatic anemia, I agree with the 1 units of PRBC. EGD reveals evidence of gastritis and esophageal varices which is likely contributing to her anemia. But her anemia is also likely in part to worsening of her bone marrow disease. Given her young age and advanced disease, she most certainly should be evaluate for a bone marrow transplant if she has not been evaluate already. I have spoken with her primary transportation lead Dr. Uli Mckee at [facility] who agrees with this. I Of note, anemia panel reveals normal iron studies, nor evidence of vit b12 or folate deficiency. 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 It is noted that with her active Myeloproliferative disorder, pt is at increased risk for recurrent clot. Approximately 40 min were spent at patient's bedside and in coordination of her care Problems: Consultation Date/Type/Reason Admit Date/Time Sep 26, 2016 at 15:16 Initial Consult Date 09/27/16 Type of Consultation: Hematology Reason for Consultation myeloproliferative disorder Referring Provider: LEIA HERNANDEZ NP 24 HR Interval Summary Free Text/Dictation pt received 1 unit of prbc yesterday. pt had EGD done yesterday which revealed GIII/IV Esophageal varices, Gastritis with erosion. pt is still feeling very weak Exam/Review of Systems Vital Signs Vitals Vital Signs Date Time Temp Pulse Resp B/P Pulse Ox O2 Delivery O2 Flow Rate FiO2 09/29/16 07:08 97.3 76 20 113/66 96 09/28/16 20:30 Room Air 09/28/16 19:35 2.0 Intake and Output 09/28/16 09/28/16 09/29/16 15:00 23:00 07:00 Intake Total 1000 ml 460 ml 780 ml Balance 1000 ml 460 ml 780 ml Exam Constitutional: alert, oriented Psych: no complaints Head: normocephalic Eyes: nl conjunctiva ENMT: nl external ears & nose Neck: non-tender, supple Respiratory: clear to auscultation, normal air movement Cardiovascular: nl pulses, regular rate and rhythm Gastrointestinal: soft Musculoskeletal: nl extremities to inspection Results Result Diagram: 09/29/16 0903 09/28/16 0440 Results 24 hrs Laboratory Tests Test 09/29/16 09:03 Basophils # 0.0 Basophils % 0.1 Blood Morphology Comment Eosinophils # 0.0 Eosinophils % 1.7 Hematocrit 28.1 L Hemoglobin 9.5 L Lymphocytes # 0.4 L Lymphocytes % 14.1 L Mean Corpuscular Hemoglobin 24.9 L Mean Corpuscular Hemoglobin Concent 33.9 Mean Corpuscular Volume 73.5 L Mean Platelet Volume 7.6 Monocytes # 0.1 L Monocytes % 4.2 Neutrophils # 2.4 Neutrophils % 79.9 H Nucleated Red Blood Cells # 0.1 H Nucleated Red Blood Cells % 2.0 H Platelet Count 248 Red Blood Count 3.82 L Red Cell Distribution Width 28.8 H White Blood Count 3.0 L Medications Medications Current Medications Dextrose/Sodium Chloride (D5-1/2ns) 1,000 ml @ 100 mls/hr Q10H IV Last administered on 09/29/16 10:44; Admin Dose 100 MLS/HR; Start 09/26/16 at 15:11 Ondansetron HCl (Zofran Inj) 4 mg Q6H PRN IV NAUSEA AND/OR VOMITING; Start 07/02 at 15:30 Acetaminophen/ Hydrocodone Bitart ([place] (5/325)) 1 tab Q6H PRN PO MODERATE PAIN LEVEL 4-6 Last administered on 09/29/16 00:06; Admin Dose 1 TAB; Start 07/02 at 15:30 Morphine Sulfate (morphine) 2 mg Q4H PRN IV SEVERE PAIN LEVEL 7-10; Start 09/26 at 15:30 Magnesium Hydroxide (Milk Of Mag) 30 ml DAILY PRN PO CONSTIPATION; Start at 15:30 Bisacodyl (Dulcolax) 5 mg DAILY PRN PO CONSTIPATION Last administered on 17:19; Admin Dose 5 MG; Start 09/26/16 at 15:30 Pantoprazole (Protonix Tab) 40 mg DAILY@06 PO Last administered on 09/29/16 06 :05; Admin Dose 40 MG; Start 09/27/16 at 06:00 Ferrous Sulfate (Ferrous Sulfate (Ec)) 325 mg TID PO Last administered on 08:39; Admin Dose 325 MG; Start 09/26/16 at 21:00 Aspirin (Halfprin) 81 mg DAILY PO Last administered on 09/29/16 08:39; Admin Dose 81 MG; Start 09/27/16 at 11:00 QUE LYONS M.D. Sep 29, 2016 11:57
--- NOTE | 2016-09-29 13:20 | GILP ---
DATE OF PROCEDURE: 09/28/2016 NAME OF PROCEDURE: Esophagogastroduodenoscopy with biopsies. SURGEON: Emmy Cisse MD PREOPERATIVE DIAGNOSIS: POSTOPERATIVE DIAGNOSIS: BRIEF HISTORY AND INDICATIONS: The patient is being evaluated for anemia. PREMEDICATION: Monitored anesthesia care by anesthesiologist. INSTRUMENT USED: Olympus panendoscope. TECHNIQUE: After informed consent, with the patient/relatives understanding the procedure, its indic ations, potential risks and complications, including but not limited to: allergic reaction, bleeding , perforation or infection, and after all pertinent questions were answered to the patient's satisfa ction, the patient/relatives signed witnessed informed consent. Following this, premedication was administered slowly IV push under careful cardiovascular and respi ratory monitoring with pulse oximetry, automatic blood pressure and help desk assistant. Once the sedative effect was achieved the patient was place in the left lateral decubitus, the panen doscope was introduced and advanced under visual control. Careful examination of the upper gastrointestinal tract, both on insertion as well as withdrawal of the instrument disclosed the following findings: ESOPHAGUS: There is a small grade I/IV esophageal varices. No intervention is required. STOMACH: Upon entrance to the stomach, air was insufflated, the gastric huerta distended normally. There is erythema and edema of the mucosa of a moderate degree with superficial erosions present. Biopsies were obtained to rule out H pylori infection. There is also a 10 mm antral gastric nodule which was biopsied. It has benign endoscopic appearance and no stigmata or recent bleeding. PYLORUS: The pylorus appears patent and within normal limits, with no evidence of gastric outlet ob struction. DUODENUM: The duodenal mucosa was carefully examined in the duodenal bulb as well as the second por tion of the duodenum and appears unremarkable with no evidence of duodenitis, ulcer or neoplasm. The instrument was then withdrawn, the patient tolerated the procedure well and was transfer out of the endoscopy suite awake, and in good condition to continue recovery under observation IMPRESSION: 1. Grade I/IV esophageal varices, no intervention required. 2. Moderate erosive gastritis, rule out Helicobacter pylori infection, biopsies obtained. 3. Antral gastric nodule. Biopsies obtained. PLAN: The patient will be treated with PPIs. Pathology will be reviewed as soon as available. Fur ther recommendations will depend on the patient's clinical course. Dictated By: EMMY CISSE MS/GALILEO Conf#: [id number] [facility]#: [id number]
--- NOTE | 2016-09-29 17:19 | RADRPT ---
PROCEDURE: US Abdomen (right upper quadrant). CLINICAL INDICATION: Right upper quadrant abdomen pain. Check patency of the TIPS. TECHNIQUE: Multiple real-time longitudinal and transverse images of the right upper quadrant of th e abdomen were acquired utilizing a curved array transducer. Images were reviewed on a high-resoluti on PACS workstation. COMPARISON: None FINDINGS: The liver is normal in size and echogenicity. There is no focal hepatic lesion. There is a TIPS stent which appears widely patent throughout. The peak systolic velocity within the stent is 156 cm/sec. There is no abnormal turbulent flow. There is normal antegrade flow in the po rtal vein. The gallbladder is normal with no stones or wall thickening. There is no pericholecystic fluid gregg ection. The bile ducts are normal with the common bile duct measuring 4.1 mm in diameter. The visualized portions of the pancreas are unremarkable with obscuration of the tail of the pancrea s. No free fluid is present. The right kidney measures 10.3 cm. There is normal echogenicity of the right kidney. There is no perinephric fluid collection. There is mild right hydronephrosis with no obstructing lesion visualiz ed. There is no right renal mass or calculus.. IMPRESSION: 1. Patent TIPS. 2. Mild right hydronephrosis. 3. Otherwise unremarkable study. RPTAT: QQ .Christ Harris MD, Date Time Electronically viewed and signed by .Christ Harris MD, on 09/29/2016 17:18 .R/
[2016-09-29 20:00] VITALS: BP 110/68; RESP 20
[2016-09-30] MEDS: DEXTROSE 5%-0.45% NACL 1,000 ML IV SCH ×4 (00:45→19:11)
[2016-09-30] MEDS: PANTOPRAZOLE (EC) 40 MG TAB PO SCH (06:08)
[2016-09-30 06:27] LABS: POTASSIUM 4.2 mmol/L (3.5-5.1)
[2016-09-30 06:30] LABS: CREATININE 0.7 mg/dl (0.44-1.00)
[2016-09-30 06:31] LABS: CALCIUM 8.7 mg/dl (8.4-10.2)
[2016-09-30 06:44] LABS: BASOPHILS % 0.3 % (0.0-2.0); EOSINOPHILS % 1.2 % (0.0-7.0); HEMATOCRIT 27.8 % (37.0-47.0); HEMOGLOBIN 9.3 g/dl (12.0-16.0); LYMPHOCYTES # 0.7 10^3/ul (0.8-2.9); LYMPHOCYTES % 19.2 % (15.0-51.0); MEAN CORPUSCULAR HEMOGLOBIN 24.9 pg (29.0-33.0); MEAN CORPUSCULAR HGB CONC 33.4 g/dl (32.0-37.0); MEAN CORPUSCULAR VOLUME 74.6 fl (82.0-101.0); MEAN PLATELET VOLUME 7.8 fl (7.4-10.4); MONOCYTE # 0.1 10^3/ul (0.3-0.9); MONOCYTES % 3.8 % (0.0-11.0); NEUTROPHIL # 2.7 10^3/ul (1.6-7.5); NEUTROPHILS % 75.5 % (39.0-77.0); PLATELET COUNT 264 10^3/UL (140-440); RED BLOOD COUNT 3.73 10^6/ul (4.20-5.40); RED CELL DISTRIBUTION WIDTH 28.5 % (11.5-14.5); UNCORRECTED WBC 3.6 10^3/ul (4.8-10.8); WHITE BLOOD COUNT 3.6 10^3/ul (4.8-10.8)
[2016-09-30 07:06] LABS: CONDITION 1; LH ANALYZER COMMENTS 1; NUCLEATED RED BLOOD CELLS # 0.1 10^3/ul (0.0-0.0); SUSPECT 1
[2016-09-30 07:46] VITALS: BP 109/72; RESP 16
[2016-09-30] MEDS: FERROUS SULFATE (EC) 325 MG TAB PO SCH ×3 (09:21→20:19)
[2016-09-30] MEDS: ASPIRIN (EC) 81 MG TAB PO SCH (09:21)
[2016-09-30] MEDS ORDERED: FIORINAL PO (10:14)
[2016-09-30] MEDS ORDERED: HYDR-3498 PO (10:14)
--- NOTE | 2016-09-30 10:17 | CONS ---
Date/Time of Note Date/Time of Note DATE: 09/30/16 TIME: 10:14 Assessment/Plan Assessment/Plan Chief Complaint/Hosp Course 45 yo with myeloproliferative disorder, currently on Jakafi 10mg BID for her splenomegaly and MDS. Pt presents with worsening weakness and is found to have a Hg 8.4. Per her records patient's baseline Hg is around 12. Her Hg has dropped to 8 and this is indicative of progressive disease. given that she does appear to have symptomatic anemia, I agree with the 1 units of PRBC. EGD reveals evidence of gastritis and esophageal varices which is likely contributing to her anemia. But her anemia is also likely in part to worsening of her bone marrow disease. Given her young age and advanced disease, she most certainly should be evaluate for a bone marrow transplant if she has not been evaluate already. I have spoken with her primary impregnator helper Dr. Uli Mckee at [facility] who agrees with this. Of note, anemia panel reveals normal iron studies, nor evidence of vit b12 or folate deficiency. 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 Bone Marrow transplantations cannot be performed in the community nor do I manage these severe myelodysplastic syndromes in young patients. Pt therefore needs to be followed at a tertiary care center -if patient is referred to [facility], she can see Dr. Alin Marcial or Dr. Yesi Escobedo -pt may restart her Jakafi as an out patient -will need evaluate at a tertiary care center for bone marrow transplantation as her disease her progressing -given her h/o Budd Chiari syndrome will need to restart Aspirin and Warfarin . It is noted that with her active Myeloproliferative disorder, pt is at increased risk for recurrent clot. Approximately 40 min were spent at patient's bedside and in coordination of her care Problems: Consultation Date/Type/Reason Admit Date/Time Sep 26, 2016 at 15:16 Initial Consult Date 09/27/16 Type of Consultation: Hematology Reason for Consultation myelodysplastic syndrome Referring Provider: LEIA HERNANDEZ NP 24 HR Interval Summary Free Text/Dictation pt will feels very weak despite the increase in her Hg Exam/Review of Systems Vital Signs Vitals Vital Signs Date Time Temp Pulse Resp B/P Pulse Ox O2 Delivery O2 Flow Rate FiO2 09/30/16 07:46 97.7 70 16 109/72 98 09/28/16 20:30 Room Air 09/28/16 19:35 2.0 Intake and Output 09/29/16 09/29/16 09/30/16 15:00 23:00 07:00 Intake Total 1400 ml 1545 ml 1055 ml Output Total 1 ml Balance 1400 ml 1544 ml 1055 ml Exam Constitutional: alert, oriented Psych: no complaints Head: atraumatic, normocephalic Eyes: nl conjunctiva ENMT: nl external ears & nose Neck: non-tender, supple Respiratory: clear to auscultation Cardiovascular: nl pulses, regular rate and rhythm Gastrointestinal: soft Musculoskeletal: nl extremities to inspection, nl gait and stance Extremities: normal pulses Results Result Diagram: 09/30/16 0550 09/30/16 0550 Results 24 hrs Laboratory Tests Test 09/30/16 05:50 Anion Gap 13 Basophils # 0.0 Basophils % 0.3 Blood Morphology Comment Blood Urea Nitrogen 8 Calcium Level 8.7 Carbon Dioxide Level 27 Chloride Level 109 Creatinine 0.70 Eosinophils # 0.0 Eosinophils % 1.2 Glucose Level 95 Hematocrit 27.8 L Hemoglobin 9.3 L Lymphocytes # 0.7 L Lymphocytes % 19.2 Mean Corpuscular Hemoglobin 24.9 L Mean Corpuscular Hemoglobin Concent 33.4 Mean Corpuscular Volume 74.6 L Mean Platelet Volume 7.8 Monocytes # 0.1 L Monocytes % 3.8 Neutrophils # 2.7 Neutrophils % 75.5 Nucleated Red Blood Cells # 0.1 H Nucleated Red Blood Cells % 2.0 H Platelet Count 264 Potassium Level 4.2 Red Blood Count 3.73 L Red Cell Distribution Width 28.5 H Sodium Level 145 H White Blood Count 3.6 L Medications Medications Current Medications Dextrose/Sodium Chloride (D5-1/2ns) 1,000 ml @ 100 mls/hr Q10H IV Last administered on 09/30/16 00:45; Admin Dose 100 MLS/HR; Start 09/26/16 at 15:11 Ondansetron HCl (Zofran Inj) 4 mg Q6H PRN IV NAUSEA AND/OR VOMITING; Start 07/02 at 15:30 Acetaminophen/ Hydrocodone Bitart ([place] (5/325)) 1 tab Q6H PRN PO MODERATE PAIN LEVEL 4-6 Last administered on 09/29/16 22:25; Admin Dose 1 TAB; Start 07/02 at 15:30 Morphine Sulfate (morphine) 2 mg Q4H PRN IV SEVERE PAIN LEVEL 7-10; Start 09/26 at 15:30 Magnesium Hydroxide (Milk Of Mag) 30 ml DAILY PRN PO CONSTIPATION; Start at 15:30 Bisacodyl (Dulcolax) 5 mg DAILY PRN PO CONSTIPATION Last administered on 17:19; Admin Dose 5 MG; Start 09/26/16 at 15:30 Pantoprazole (Protonix Tab) 40 mg DAILY@06 PO Last administered on 09/30/16 06 :08; Admin Dose 40 MG; Start 09/27/16 at 06:00 Ferrous Sulfate (Ferrous Sulfate (Ec)) 325 mg TID PO Last administered on 09:21; Admin Dose 325 MG; Start 09/26/16 at 21:00 Aspirin (Halfprin) 81 mg DAILY PO Last administered on 09/30/16 09:21; Admin Dose 81 MG; Start 09/27/16 at 11:00 QUE LYONS M.D. Sep 30, 2016 10:17
--- NOTE | 2016-09-30 15:47 | PN ---
Date/Time of Note Date/Time of Note DATE: 09/30/16 TIME: 15:46 Assessment/Plan VTE Prophylaxis VTE Prophylaxis Intervention: SCD's Lines/Catheters [facility] (from [facility]): Peripheral IV Urinary Cath still in place: No Assessment/Plan Chief Complaint/Hosp Course Assessment and plan 1. Microcytic hypochromic anemia. Patient is with known history of underlying Budd-Chiari syndrome. Patient is status post one PRBC transfusion. Product Safety Associate following. Continue with recommendations. Patient did resumed on warfarin. s/p EGD. Follow-up with GI 2. hx Budd-Chiari Syndrome. Patient is status post TIPS procedure. Follow up with ball racker recommendations 3. Myeloproliferative disorder. Patient's Jakafi to be resumed. Product Safety Associate following. Follow-up with recommendations. Discussed, patient will need outpatient follow-up with tertiary evaluation. Likely will need bone marrow transplant. Case management involved 4. Cephalgia. Will provide with analgesics. No focal deficit noted at this time DVT prophylaxis: SCDs GERD prophylaxis: PPI Disposition and plan: Tentative plan for tertiary care center evaluation for possibility of bone marrow transplant. Discussed with case management, awaiting follow-ups. Sirs when cleared by consultants Discussed plan of care with Dr. Roman Problems: Subjective 24 Hr Interval Summary Free Text/Dictation Resting in bed. No apparent distress. Reports feeling little better today Exam/Review of Systems Vital Signs Vitals Vital Signs Date Time Temp Pulse Resp B/P Pulse Ox O2 Delivery O2 Flow Rate FiO2 09/30/16 07:46 97.7 70 16 109/72 98 09/28/16 20:30 Room Air 09/28/16 19:35 2.0 Intake and Output 09/29/16 09/29/16 09/30/16 14:59 22:59 06:59 Intake Total 1400 ml 1545 ml 1055 ml Output Total 1 ml Balance 1400 ml 1544 ml 1055 ml Exam General: No acute signs or symptoms of distress Eyes: pupils equal round, Anicteric sclera Neck: Supple nontender, no JVD Cardiac: S1, S2 auscultated, regular rhythm and rate Pulmonary: No coarse rhonchi or breathing auscultated GI: Abdomen soft nontender nondistended, bowel sounds active Extremities: No edema bilateral lower extremities Skin: Clean dry and intact Neurologic: Alert to person place and time and situation Results Result Diagram: 09/30/16 0550 09/30/16 0550 Results 24 hrs Laboratory Tests Test 09/30/16 05:50 Anion Gap 13 Basophils # 0.0 Basophils % 0.3 Blood Morphology Comment Blood Urea Nitrogen 8 Calcium Level 8.7 Carbon Dioxide Level 27 Chloride Level 109 Creatinine 0.70 Eosinophils # 0.0 Eosinophils % 1.2 Glucose Level 95 Hematocrit 27.8 L Hemoglobin 9.3 L Lymphocytes # 0.7 L Lymphocytes % 19.2 Mean Corpuscular Hemoglobin 24.9 L Mean Corpuscular Hemoglobin Concent 33.4 Mean Corpuscular Volume 74.6 L Mean Platelet Volume 7.8 Monocytes # 0.1 L Monocytes % 3.8 Neutrophils # 2.7 Neutrophils % 75.5 Nucleated Red Blood Cells # 0.1 H Nucleated Red Blood Cells % 2.0 H Platelet Count 264 Potassium Level 4.2 Red Blood Count 3.73 L Red Cell Distribution Width 28.5 H Sodium Level 145 H White Blood Count 3.6 L Medications Medications Current Medications Dextrose/Sodium Chloride (D5-1/2ns) 1,000 ml @ 100 mls/hr Q10H IV Last administered on 09/30/16 14:55; Admin Dose 100 MLS/HR; Start 09/26/16 at 15:11 Ondansetron HCl (Zofran Inj) 4 mg Q6H PRN IV NAUSEA AND/OR VOMITING; Start 07/02 at 15:30 Acetaminophen/ Hydrocodone Bitart ([place] (5/325)) 1 tab Q6H PRN PO MODERATE PAIN LEVEL 4-6 Last administered on 09/29/16 22:25; Admin Dose 1 TAB; Start 07/02 at 15:30 Morphine Sulfate (morphine) 2 mg Q4H PRN IV SEVERE PAIN LEVEL 7-10; Start 09/26 at 15:30 Magnesium Hydroxide (Milk Of Mag) 30 ml DAILY PRN PO CONSTIPATION; Start at 15:30 Bisacodyl (Dulcolax) 5 mg DAILY PRN PO CONSTIPATION Last administered on 17:19; Admin Dose 5 MG; Start 09/26/16 at 15:30 Pantoprazole (Protonix Tab) 40 mg DAILY@06 PO Last administered on 09/30/16 06 :08; Admin Dose 40 MG; Start 09/27/16 at 06:00 Ferrous Sulfate (Ferrous Sulfate (Ec)) 325 mg TID PO Last administered on 13:28; Admin Dose 325 MG; Start 09/26/16 at 21:00 Aspirin (Halfprin) 81 mg DAILY PO Last administered on 09/30/16 09:21; Admin Dose 81 MG; Start 09/27/16 at 11:00 SHANNON LOPEZ Sep 30, 2016 15:47
[2016-09-30 16:25] VITALS: Ht 157.5 cm; Wt 74.8 kg
--- NOTE | 2016-09-30 16:51 | CONS ---
Date/Time of Note Date/Time of Note DATE: 09/30/16 TIME: 16:40 Assessment/Plan Assessment/Plan Additional Assessment/Plan Assessment: * New onset anemia * Occult gastrointestinal bleeding * EGD 09-28-16: 1. GI/IV Esophageal varices. 2. Gastritis with erosion. Biopsies negative for H. Pylori. 3. Antral gastric nodule. Biopsies negative for malignancy * History of Budd-Chiari syndrome * Post tips/patent as of June 2016 * Repeat Doppler 09-29-16 confirms patency * History of hypothyroidism Plan: * Monitor H&H Q6 hrs, transfuse 2 units for Hgb < 7.5 * Advance diet as tolerated * Further recommendations depend on clinical course * Pt seen in collaboration with Dr. Cisse Consultation Date/Type/Reason Consultation Date/Type/Reason Admit Date/Time Sep 26, 2016 at 15:16 Initial Consult Date 09/27/16 Type of Consultation: GI Referring Provider: LEIA HERNANDEZ RECORDER GRAVITY PROSPECTING 24 HR Interval Summary Free Text/Dictation Lily diet Denies abdominal pain Awaiting transfer to tertiary center Advised pt of EGD and pathology results Exam/Review of Systems Vital Signs Vitals Vital Signs Date Time Temp Pulse Resp B/P Pulse Ox O2 Delivery O2 Flow Rate FiO2 09/30/16 07:46 97.7 70 16 109/72 98 09/28/16 20:30 Room Air 09/28/16 19:35 2.0 Intake and Output 09/29/16 09/29/16 09/30/16 15:00 23:00 07:00 Intake Total 1400 ml 1545 ml 1055 ml Output Total 1 ml Balance 1400 ml 1544 ml 1055 ml Exam Constitutional: alert, oriented, well developed Psych: nl mood/affect, no complaints Head: atraumatic, normocephalic Eyes: EOMI, PERRL, nl conjunctiva, nl lids, nl sclera ENMT: nl external ears & nose, nl lips & teeth, nl nasal mucosa & septum Neck: non-tender, supple Respiratory: clear to auscultation, normal air movement Cardiovascular: nl pulses, regular rate and rhythm Gastrointestinal: bowel sounds, nl liver, spleen, soft, splenomegaly, non tender, No ascites, No distended, No hepatomegaly, No mass, No rebound or guarding Musculoskeletal: nl extremities to inspection Extremities: normal pulses Skin: nl turgor, No rash or lesions Lymph: nl lymph nodes Results Result Diagram: 09/30/16 0550 09/30/16 0550 Results 24 hrs Laboratory Tests Test 09/30/16 05:50 Anion Gap 13 Basophils # 0.0 Basophils % 0.3 Blood Morphology Comment Blood Urea Nitrogen 8 Calcium Level 8.7 Carbon Dioxide Level 27 Chloride Level 109 Creatinine 0.70 Eosinophils # 0.0 Eosinophils % 1.2 Glucose Level 95 Hematocrit 27.8 L Hemoglobin 9.3 L Lymphocytes # 0.7 L Lymphocytes % 19.2 Mean Corpuscular Hemoglobin 24.9 L Mean Corpuscular Hemoglobin Concent 33.4 Mean Corpuscular Volume 74.6 L Mean Platelet Volume 7.8 Monocytes # 0.1 L Monocytes % 3.8 Neutrophils # 2.7 Neutrophils % 75.5 Nucleated Red Blood Cells # 0.1 H Nucleated Red Blood Cells % 2.0 H Platelet Count 264 Potassium Level 4.2 Red Blood Count 3.73 L Red Cell Distribution Width 28.5 H Sodium Level 145 H White Blood Count 3.6 L Medications Medications Current Medications Dextrose/Sodium Chloride (D5-1/2ns) 1,000 ml @ 100 mls/hr Q10H IV Last administered on 09/30/16 14:55; Admin Dose 100 MLS/HR; Start 09/26/16 at 15:11 Ondansetron HCl (Zofran Inj) 4 mg Q6H PRN IV NAUSEA AND/OR VOMITING; Start 07/02 at 15:30 Acetaminophen/ Hydrocodone Bitart ([place] (5/325)) 1 tab Q6H PRN PO MODERATE PAIN LEVEL 4-6 Last administered on 09/29/16 22:25; Admin Dose 1 TAB; Start 07/02 at 15:30 Morphine Sulfate (morphine) 2 mg Q4H PRN IV SEVERE PAIN LEVEL 7-10; Start 09/26 at 15:30 Magnesium Hydroxide (Milk Of Mag) 30 ml DAILY PRN PO CONSTIPATION; Start at 15:30 Bisacodyl (Dulcolax) 5 mg DAILY PRN PO CONSTIPATION Last administered on 17:19; Admin Dose 5 MG; Start 09/26/16 at 15:30 Pantoprazole (Protonix Tab) 40 mg DAILY@06 PO Last administered on 09/30/16 06 :08; Admin Dose 40 MG; Start 09/27/16 at 06:00 Ferrous Sulfate (Ferrous Sulfate (Ec)) 325 mg TID PO Last administered on 13:28; Admin Dose 325 MG; Start 09/26/16 at 21:00 Aspirin (Halfprin) 81 mg DAILY PO Last administered on 09/30/16 09:21; Admin Dose 81 MG; Start 09/27/16 at 11:00 BOBBY DELAROSA Sep 30, 2016 16:50
[2016-09-30 20:00] VITALS: BP 102/66; PULSE 73; RESP 17
[2016-10-01] MEDS: DEXTROSE 5%-0.45% NACL 1,000 ML IV SCH ×3 (02:11→14:05)
[2016-10-01] MEDS: PANTOPRAZOLE (EC) 40 MG TAB PO SCH (06:14)
[2016-10-01 06:22] LABS: BASOPHILS % 0.4 % (0.0-2.0); EOSINOPHILS # 0.1 10^3/ul (0.0-0.5); EOSINOPHILS % 1.7 % (0.0-7.0); HEMATOCRIT 27.4 % (37.0-47.0); HEMOGLOBIN 9.4 g/dl (12.0-16.0); LYMPHOCYTES # 0.6 10^3/ul (0.8-2.9); LYMPHOCYTES % 16.8 % (15.0-51.0); MEAN CORPUSCULAR HEMOGLOBIN 25.5 pg (29.0-33.0); MEAN CORPUSCULAR HGB CONC 34.2 g/dl (32.0-37.0); MEAN CORPUSCULAR VOLUME 74.5 fl (82.0-101.0); MONOCYTE # 0.1 10^3/ul (0.3-0.9); MONOCYTES % 3.4 % (0.0-11.0); NEUTROPHIL # 2.9 10^3/ul (1.6-7.5); NEUTROPHILS % 77.7 % (39.0-77.0); PLATELET COUNT 304 10^3/UL (140-440); RED BLOOD COUNT 3.67 10^6/ul (4.20-5.40); RED CELL DISTRIBUTION WIDTH 29.3 % (11.5-14.5); UNCORRECTED WBC 3.8 10^3/ul (4.8-10.8); WHITE BLOOD COUNT 3.8 10^3/ul (4.8-10.8)
[2016-10-01 06:24] LABS: CONDITION 1; LH ANALYZER COMMENTS 1; SUSPECT 1
[2016-10-01 06:36] LABS: CREATININE 0.65 mg/dl (0.44-1.00)
[2016-10-01 06:37] LABS: CALCIUM 8.4 mg/dl (8.4-10.2)
[2016-10-01 07:34] VITALS: BP 102/65; RESP 19
[2016-10-01] MEDS: ASPIRIN (EC) 81 MG TAB PO SCH (09:00)
[2016-10-01] MEDS: FERROUS SULFATE (EC) 325 MG TAB PO SCH ×3 (09:01→20:47)
--- NOTE | 2016-10-01 10:11 | CONS ---
Date/Time of Note Date/Time of Note DATE: 10/01/16 TIME: 10:10 Assessment/Plan Assessment/Plan Additional Assessment/Plan Assessment: * New onset anemia * Occult gastrointestinal bleeding * EGD 09-28-16: 1. GI/IV Esophageal varices. 2. Gastritis with erosion. Biopsies negative for H. Pylori. 3. Antral gastric nodule. Biopsies negative for malignancy * History of Budd-Chiari syndrome * Post tips/patent as of June 2016 * Repeat Doppler 09-29-16 confirms patency * History of hypothyroidism Plan: * Monitor H&H Q6 hrs, transfuse 2 units for Hgb < 7.5 * Advance diet as tolerated * Further recommendations depend on clinical course * Pt seen in collaboration with Dr. Cisse Consultation Date/Type/Reason Admit Date/Time Sep 26, 2016 at 15:16 Initial Consult Date 09/27/16 Type of Consultation: GI Referring Provider: LEIA HERNANDEZ NP 24 HR Interval Summary Free Text/Dictation Lily diet Denies abdominal pain Awaiting transfer to tertiary center Exam/Review of Systems Vital Signs Vitals Vital Signs Date Time Temp Pulse Resp B/P Pulse Ox O2 Delivery O2 Flow Rate FiO2 10/01/16 07:34 98.6 79 19 102/65 98 09/30/16 20:00 Room Air 09/28/16 19:35 2.0 Intake and Output 09/30/16 09/30/16 10/01/16 15:00 23:00 07:00 Intake Total 700 ml 1600 ml 700 ml Output Total 800 ml Balance 700 ml 800 ml 700 ml Exam Constitutional: alert, oriented, well developed Psych: nl mood/affect, no complaints Head: atraumatic, normocephalic Eyes: EOMI, PERRL, nl conjunctiva, nl lids, nl sclera ENMT: nl external ears & nose, nl lips & teeth, nl nasal mucosa & septum Neck: non-tender, supple Respiratory: clear to auscultation, normal air movement Cardiovascular: nl pulses, regular rate and rhythm Gastrointestinal: bowel sounds, nl liver, spleen, soft, splenomegaly, non tender, No ascites, No distended, No hepatomegaly, No mass, No rebound or guarding Musculoskeletal: nl extremities to inspection Extremities: normal pulses Skin: nl turgor, No rash or lesions Lymph: nl lymph nodes Results Result Diagram: 10/01/16 0540 10/01/16 0540 Results 24 hrs Laboratory Tests Test 10/01/16 05:40 Anion Gap 15 Basophils # 0.0 Basophils % 0.4 Blood Morphology Comment Blood Urea Nitrogen 8 Calcium Level 8.4 Carbon Dioxide Level 25 Chloride Level 106 Creatinine 0.65 Eosinophils # 0.1 Eosinophils % 1.7 Glucose Level 103 Hematocrit 27.4 L Hemoglobin 9.4 L Lymphocytes # 0.6 L Lymphocytes % 16.8 Mean Corpuscular Hemoglobin 25.5 L Mean Corpuscular Hemoglobin Concent 34.2 Mean Corpuscular Volume 74.5 L Mean Platelet Volume 8.0 Monocytes # 0.1 L Monocytes % 3.4 Neutrophils # 2.9 Neutrophils % 77.7 H Nucleated Red Blood Cells # 0.0 Nucleated Red Blood Cells % 0.0 Platelet Count 304 Potassium Level 4.0 Red Blood Count 3.67 L Red Cell Distribution Width 29.3 H Sodium Level 142 White Blood Count 3.8 L Medications Medications Current Medications Dextrose/Sodium Chloride (D5-1/2ns) 1,000 ml @ 100 mls/hr Q10H IV Last administered on 10/01/16 02:11; Admin Dose 100 MLS/HR; Start 09/26/16 at 15:11 Ondansetron HCl (Zofran Inj) 4 mg Q6H PRN IV NAUSEA AND/OR VOMITING; Start 07/02 at 15:30 Acetaminophen/ Hydrocodone Bitart ([place] (5/325)) 1 tab Q6H PRN PO MODERATE PAIN LEVEL 4-6 Last administered on 09/29/16 22:25; Admin Dose 1 TAB; Start 07/02 at 15:30 Morphine Sulfate (morphine) 2 mg Q4H PRN IV SEVERE PAIN LEVEL 7-10; Start 09/26 at 15:30 Magnesium Hydroxide (Milk Of Mag) 30 ml DAILY PRN PO CONSTIPATION; Start at 15:30 Bisacodyl (Dulcolax) 5 mg DAILY PRN PO CONSTIPATION Last administered on 17:19; Admin Dose 5 MG; Start 09/26/16 at 15:30 Pantoprazole (Protonix Tab) 40 mg DAILY@06 PO Last administered on 10/01/16 06 :14; Admin Dose 40 MG; Start 09/27/16 at 06:00 Ferrous Sulfate (Ferrous Sulfate (Ec)) 325 mg TID PO Last administered on 09:01; Admin Dose 325 MG; Start 09/26/16 at 21:00 Aspirin (Halfprin) 81 mg DAILY PO Last administered on 10/01/16 09:00; Admin Dose 81 MG; Start 09/27/16 at 11:00 Warfarin Sodium (Coumadin) 7.5 mg ONCE@17 ONCE PO ; Start 10/01/16 at 17:00; Stop 10/01/16 at 17:01 BOBBY DELAROSA Oct 01, 2016 10:11
[2016-10-01 11:30] LABS: INR 1.29; PROTIME 16.2 Sec (12.2-14.2); PT RATIO 1.3
--- NOTE | 2016-10-01 12:26 | CONS ---
Date/Time of Note Date/Time of Note DATE: 10/01/16 TIME: 12:22 Assessment/Plan Assessment/Plan Chief Complaint/Hosp Course 45 yo with myeloproliferative disorder, currently on Jakafi 10mg BID for her splenomegaly and MDS. Pt presents with worsening weakness and is found to have a Hg 8.4. Per her records patient's baseline Hg is around 12. Her Hg has dropped to 8 and this is indicative of progressive disease. given that she does appear to have symptomatic anemia, I agree with the 1 units of PRBC. EGD reveals evidence of gastritis and esophageal varices which is likely contributing to her anemia. But her anemia is also likely in part to worsening of her bone marrow disease. Given her young age and advanced disease, she most certainly should be evaluate for a bone marrow transplant if she has not been evaluate already. I have spoken with her primary textbook associate Dr. Uli Mckee at [facility] who agrees with this. Of note, anemia panel reveals normal iron studies, nor evidence of vit b12 or folate deficiency. 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 Bone Marrow transplantations cannot be performed in the community nor do I manage these severe myelodysplastic syndromes in young patients. Pt therefore needs to be followed at a tertiary care center -if patient is referred to [facility], she can see Dr. Alin Marcial or Dr. Yesi Escobedo -pt may restart her Jakafi as an out patient -will need evaluate at a tertiary care center for bone marrow transplantation as her disease her progressing -given her h/o Budd Chiari syndrome will need to restart Aspirin and Warfarin . It is noted that with her active Myeloproliferative disorder, pt is at increased risk for recurrent clot. Ok to discharge once patient has f/u at bone marrow transplant center Approximately 40 min were spent at patient's bedside and in coordination of her care Problems: Consultation Date/Type/Reason Admit Date/Time Sep 26, 2016 at 15:16 Initial Consult Date 09/27/16 Type of Consultation: Hematology Reason for Consultation MDS Referring Provider: LEIA HERNANDEZ NP 24 HR Interval Summary Free Text/Dictation no acute overnight events . Hg stable Exam/Review of Systems Vital Signs Vitals Vital Signs Date Time Temp Pulse Resp B/P Pulse Ox O2 Delivery O2 Flow Rate FiO2 10/01/16 07:34 98.6 79 19 102/65 98 09/30/16 20:00 Room Air 09/28/16 19:35 2.0 Intake and Output 09/30/16 09/30/16 10/01/16 15:00 23:00 07:00 Intake Total 700 ml 1600 ml 700 ml Output Total 800 ml Balance 700 ml 800 ml 700 ml Exam Constitutional: alert, oriented Head: atraumatic, normocephalic Eyes: nl conjunctiva ENMT: nl external ears & nose, nl lips & teeth Neck: non-tender, supple Respiratory: clear to auscultation Cardiovascular: regular rate and rhythm Gastrointestinal: soft Musculoskeletal: nl extremities to inspection, nl gait and stance Extremities: normal pulses Results Result Diagram: 10/01/16 0540 10/01/16 0540 Results 24 hrs Laboratory Tests Test 10/01/16 05:40 10/01/16 10:34 Anion Gap 15 Basophils # 0.0 Basophils % 0.4 Blood Morphology Comment Blood Urea Nitrogen 8 Calcium Level 8.4 Carbon Dioxide Level 25 Chloride Level 106 Creatinine 0.65 Eosinophils # 0.1 Eosinophils % 1.7 Glucose Level 103 Hematocrit 27.4 L Hemoglobin 9.4 L Lymphocytes # 0.6 L Lymphocytes % 16.8 Mean Corpuscular Hemoglobin 25.5 L Mean Corpuscular Hemoglobin Concent 34.2 Mean Corpuscular Volume 74.5 L Mean Platelet Volume 8.0 Monocytes # 0.1 L Monocytes % 3.4 Neutrophils # 2.9 Neutrophils % 77.7 H Nucleated Red Blood Cells # 0.0 Nucleated Red Blood Cells % 0.0 Platelet Count 304 Potassium Level 4.0 Red Blood Count 3.67 L Red Cell Distribution Width 29.3 H Sodium Level 142 White Blood Count 3.8 L INR International Normalized Ratio 1.29 Prothrombin Time 16.2 H Prothrombin Time Ratio 1.3 Medications Medications Current Medications Dextrose/Sodium Chloride (D5-1/2ns) 1,000 ml @ 100 mls/hr Q10H IV Last administered on 10/01/16t 02:11; Admin Dose 100 MLS/HR; Start 09/26/16 at 15:11 Ondansetron HCl (Zofran Inj) 4 mg Q6H PRN IV NAUSEA AND/OR VOMITING; Start 07/02 at 15:30 Acetaminophen/ Hydrocodone Bitart ([place] (5/325)) 1 tab Q6H PRN PO MODERATE PAIN LEVEL 4-6 Last administered on 09/29/16 22:25; Admin Dose 1 TAB; Start 07/02 at 15:30 Morphine Sulfate (morphine) 2 mg Q4H PRN IV SEVERE PAIN LEVEL 7-10; Start 09/26 at 15:30 Magnesium Hydroxide (Milk Of Mag) 30 ml DAILY PRN PO CONSTIPATION; Start at 15:30 Bisacodyl (Dulcolax) 5 mg DAILY PRN PO CONSTIPATION Last administered on 17:19; Admin Dose 5 MG; Start 09/26/16 at 15:30 Pantoprazole (Protonix Tab) 40 mg DAILY@06 PO Last administered on 10/01/16 06 :14; Admin Dose 40 MG; Start 09/27/16 at 06:00 Ferrous Sulfate (Ferrous Sulfate (Ec)) 325 mg TID PO Last administered on 09:01; Admin Dose 325 MG; Start 09/26/16 at 21:00 Aspirin (Halfprin) 81 mg DAILY PO Last administered on 10/01/16 09:00; Admin Dose 81 MG; Start 09/27/16 at 11:00 Warfarin Sodium (Coumadin) 7.5 mg ONCE@17 ONCE PO ; Start 10/01/16 at 17:00; Stop 10/01/16 at 17:01 QUE LYONS M.D. Oct 01, 2016 12:26
--- NOTE | 2016-10-01 15:32 | PN ---
Date/Time of Note Date/Time of Note DATE: 10/01/16 TIME: 15:29 Assessment/Plan VTE Prophylaxis VTE Prophylaxis Intervention: SCD's Lines/Catheters IV [facility] Type [facility] Peripheral IV Urinary Cath still in place: No Assessment/Plan Chief Complaint/Hosp Course Assessment and plan 1. Microcytic hypochromic anemia. Patient is with known history of underlying Budd-Chiari syndrome. Patient is status post one PRBC transfusion. Head Host/Hostess following. Continue with recommendations. Off anticoagulants at this time. Tentative plan for EGD 2. hx Budd-Chiari Syndrome. Patient is status post TIPS procedure. Follow up with grain processor recommendations 3. Myeloproliferative disorder. Patient's Jakafi to be resumed. Head Host/Hostess. Follow-up with recommendations. DVT prophylaxis: SCDs GERD prophylaxis: PPI Disposition and plan: Awaiting for authorization for outpatient follow up for bone marrow transplant. Will follow up with case management. Discussed with oncologist. d/c once set up Discussed plan of care with Dr. Roman Problems: Subjective 24 Hr Interval Summary Free Text/Dictation comfortable at this time. no s/s of distress Exam/Review of Systems Vital Signs Vitals Vital Signs Date Time Temp Pulse Resp B/P Pulse Ox O2 Delivery O2 Flow Rate FiO2 10/01/16 07:34 98.6 79 19 102/65 98 09/30/16 20:00 Room Air 09/28/16 19:35 2.0 Intake and Output 09/30/16 09/30/16 10/01/16 15:00 23:00 07:00 Intake Total 700 ml 1600 ml 700 ml Output Total 800 ml Balance 700 ml 800 ml 700 ml Exam General: No acute signs or symptoms of distress Eyes: pupils equal round, Anicteric sclera Neck: Supple nontender, no JVD Cardiac: S1, S2 auscultated, regular rhythm and rate Pulmonary: No coarse rhonchi or breathing auscultated GI: Abdomen soft nontender nondistended, bowel sounds active Extremities: No edema bilateral lower extremities Skin: Clean dry and intact Neurologic: Alert to person place and time and situation Results Result Diagram: 10/01/16 0540 10/01/16 0540 Results 24 hrs Laboratory Tests Test 10/01/16 05:40 10/01/16 10:34 Anion Gap 15 Basophils # 0.0 Basophils % 0.4 Blood Morphology Comment Blood Urea Nitrogen 8 Calcium Level 8.4 Carbon Dioxide Level 25 Chloride Level 106 Creatinine 0.65 Eosinophils # 0.1 Eosinophils % 1.7 Glucose Level 103 Hematocrit 27.4 L Hemoglobin 9.4 L Lymphocytes # 0.6 L Lymphocytes % 16.8 Mean Corpuscular Hemoglobin 25.5 L Mean Corpuscular Hemoglobin Concent 34.2 Mean Corpuscular Volume 74.5 L Mean Platelet Volume 8.0 Monocytes # 0.1 L Monocytes % 3.4 Neutrophils # 2.9 Neutrophils % 77.7 H Nucleated Red Blood Cells # 0.0 Nucleated Red Blood Cells % 0.0 Platelet Count 304 Potassium Level 4.0 Red Blood Count 3.67 L Red Cell Distribution Width 29.3 H Sodium Level 142 White Blood Count 3.8 L INR International Normalized Ratio 1.29 Prothrombin Time 16.2 H Prothrombin Time Ratio 1.3 Medications Medications Current Medications Dextrose/Sodium Chloride (D5-1/2ns) 1,000 ml @ 100 mls/hr Q10H IV Last administered on 10/01/16 14:05; Admin Dose 100 MLS/HR; Start 09/26/16 at 15:11 Ondansetron HCl (Zofran Inj) 4 mg Q6H PRN IV NAUSEA AND/OR VOMITING; Start 07/02 at 15:30 Acetaminophen/ Hydrocodone Bitart ([place] (5/325)) 1 tab Q6H PRN PO MODERATE PAIN LEVEL 4-6 Last administered on 09/29/16 22:25; Admin Dose 1 TAB; Start 07/02 at 15:30 Morphine Sulfate (morphine) 2 mg Q4H PRN IV SEVERE PAIN LEVEL 7-10; Start 09/26 at 15:30 Magnesium Hydroxide (Milk Of Mag) 30 ml DAILY PRN PO CONSTIPATION; Start at 15:30 Bisacodyl (Dulcolax) 5 mg DAILY PRN PO CONSTIPATION Last administered on 17:19; Admin Dose 5 MG; Start 09/26/16 at 15:30 Pantoprazole (Protonix Tab) 40 mg DAILY@06 PO Last administered on 10/01/16 06 :14; Admin Dose 40 MG; Start 09/27/16 at 06:00 Ferrous Sulfate (Ferrous Sulfate (Ec)) 325 mg TID PO Last administered on 13:25; Admin Dose 325 MG; Start 09/26/16 at 21:00 Aspirin (Halfprin) 81 mg DAILY PO Last administered on 10/01/16 09:00; Admin Dose 81 MG; Start 09/27/16 at 11:00 Warfarin Sodium (Coumadin) 7.5 mg ONCE@17 ONCE PO ; Start 10/01/16 at 17:00; Stop 10/01/16 at 17:01 SHANNON LOPEZ Oct 01, 2016 15:32
[2016-10-01] MEDS ORDERED: WARFARIN 7.5 MG TAB PO ONE (17:00)
[2016-10-01 20:09] VITALS: BP 128/67; RESP 18
[2016-10-02] MEDS: DEXTROSE 5%-0.45% NACL 1,000 ML IV SCH ×3 (01:11→11:11)
[2016-10-02] MEDS: PANTOPRAZOLE (EC) 40 MG TAB PO SCH (05:04)
[2016-10-02 05:47] LABS: BASOPHILS % 0.4 % (0.0-2.0); EOSINOPHILS # 0.1 10^3/ul (0.0-0.5); EOSINOPHILS % 1.3 % (0.0-7.0); HEMATOCRIT 29.1 % (37.0-47.0); HEMOGLOBIN 9.6 g/dl (12.0-16.0); LYMPHOCYTES # 0.6 10^3/ul (0.8-2.9); LYMPHOCYTES % 14.7 % (15.0-51.0); MEAN CORPUSCULAR HEMOGLOBIN 25.1 pg (29.0-33.0); MEAN CORPUSCULAR HGB CONC 33.2 g/dl (32.0-37.0); MEAN CORPUSCULAR VOLUME 75.7 fl (82.0-101.0); MEAN PLATELET VOLUME 7.5 fl (7.4-10.4); MONOCYTE # 0.2 10^3/ul (0.3-0.9); MONOCYTES % 3.5 % (0.0-11.0); NEUTROPHIL # 3.5 10^3/ul (1.6-7.5); NEUTROPHILS % 80.1 % (39.0-77.0); PLATELET COUNT 325 10^3/UL (140-440); RED BLOOD COUNT 3.84 10^6/ul (4.20-5.40); RED CELL DISTRIBUTION WIDTH 30.2 % (11.5-14.5); UNCORRECTED WBC 4.3 10^3/ul (4.8-10.8); WHITE BLOOD COUNT 4.3 10^3/ul (4.8-10.8)
[2016-10-02 05:57] LABS: CONDITION 1; LH ANALYZER COMMENTS 1; NUCLEATED RED BLOOD CELLS # 0.1 10^3/ul (0.0-0.0); SUSPECT 1
[2016-10-02 06:01] LABS: INR 1.29; PROTIME 16.2 Sec (12.2-14.2); PT RATIO 1.3
[2016-10-02 06:24] LABS: POTASSIUM 4.1 mmol/L (3.5-5.1)
[2016-10-02 06:27] LABS: CREATININE 0.7 mg/dl (0.44-1.00)
[2016-10-02 06:28] LABS: CALCIUM 8.8 mg/dl (8.4-10.2)
[2016-10-02 07:28] VITALS: BP 92/54; RESP 19
[2016-10-02] MEDS: ASPIRIN (EC) 81 MG TAB PO SCH (08:14)
[2016-10-02] MEDS: FERROUS SULFATE (EC) 325 MG TAB PO SCH (08:14)
--- NOTE | 2016-10-02 08:18 | CONS ---
Date/Time of Note Date/Time of Note DATE: 10/02/16 TIME: 08:13 Assessment/Plan Assessment/Plan Additional Assessment/Plan Assessment: * New onset anemia * Occult gastrointestinal bleeding * EGD 09-28-16: 1. GI/IV Esophageal varices. 2. Gastritis with erosion. Biopsies negative for H. Pylori. 3. Antral gastric nodule. Biopsies negative for malignancy * History of Budd-Chiari syndrome * Post tips/patent as of June 2016 * Repeat Doppler 09-29-16 confirms patency * History of hypothyroidism Plan: * Monitor H&H Q6 hrs, transfuse 2 units for Hgb < 7.5 * Advance diet as tolerated * Patient stable from GI standpoint * Further recommendations depend on clinical course * Pt seen in collaboration with Dr. Cisse Consultation Date/Type/Reason Admit Date/Time Sep 26, 2016 at 15:16 Initial Consult Date 09/27/16 Type of Consultation: Gastroenterology Referring Provider: LEIA HERNANDEZ NP 24 HR Interval Summary Free Text/Dictation Hemoglobin stable Patient stable from GI standpoint Tolerating diet Exam/Review of Systems Vital Signs Vitals Vital Signs Date Time Temp Pulse Resp B/P Pulse Ox O2 Delivery O2 Flow Rate FiO2 10/02/16 07:28 98.1 71 19 92/54 97 09/30/16 20:00 Room Air 09/28/16 19:35 2.0 Intake and Output 10/01/16 10/01/16 10/02/16 15:00 23:00 07:00 Intake Total 1000 ml 1520 ml 1000 ml Balance 1000 ml 1520 ml 1000 ml Exam Constitutional: alert, oriented, well developed Psych: nl mood/affect, no complaints Head: atraumatic, normocephalic Eyes: EOMI, PERRL, nl conjunctiva, nl lids, nl sclera ENMT: nl external ears & nose, nl lips & teeth, nl nasal mucosa & septum Neck: non-tender, supple Respiratory: clear to auscultation, normal air movement Cardiovascular: nl pulses, regular rate and rhythm Gastrointestinal: bowel sounds, nl liver, spleen, soft, splenomegaly, non tender, No ascites, No distended, No hepatomegaly, No mass, No rebound or guarding Musculoskeletal: nl extremities to inspection Extremities: normal pulses Skin: nl turgor, No rash or lesions Lymph: nl lymph nodes Results Result Diagram: 10/02/16 0500 10/02/16 0500 Results 24 hrs Laboratory Tests Test 10/01/16 10:34 10/02/16 05:00 INR International Normalized Ratio 1.29 1.29 Prothrombin Time 16.2 H 16.2 H Prothrombin Time Ratio 1.3 1.3 Anion Gap 13 Basophils # 0.0 Basophils % 0.4 Blood Morphology Comment Blood Urea Nitrogen 9 Calcium Level 8.8 Carbon Dioxide Level 27 Chloride Level 107 Creatinine 0.70 Eosinophils # 0.1 Eosinophils % 1.3 Glucose Level 110 Hematocrit 29.1 L Hemoglobin 9.6 L Lymphocytes # 0.6 L Lymphocytes % 14.7 L Mean Corpuscular Hemoglobin 25.1 L Mean Corpuscular Hemoglobin Concent 33.2 Mean Corpuscular Volume 75.7 L Mean Platelet Volume 7.5 Monocytes # 0.2 L Monocytes % 3.5 Neutrophils # 3.5 Neutrophils % 80.1 H Nucleated Red Blood Cells # 0.1 H Nucleated Red Blood Cells % 2.0 H Platelet Count 325 Potassium Level 4.1 Red Blood Count 3.84 L Red Cell Distribution Width 30.2 H Sodium Level 143 White Blood Count 4.3 L Medications Medications Current Medications Dextrose/Sodium Chloride (D5-1/2ns) 1,000 ml @ 100 mls/hr Q10H IV Last administered on 10/02/16 05:00; Admin Dose 100 MLS/HR; Start 09/26/16 at 15:11 Ondansetron HCl (Zofran Inj) 4 mg Q6H PRN IV NAUSEA AND/OR VOMITING; Start 07/02 at 15:30 Acetaminophen/ Hydrocodone Bitart ([place] (5/325)) 1 tab Q6H PRN PO MODERATE PAIN LEVEL 4-6 Last administered on 09/29/16 22:25; Admin Dose 1 TAB; Start 07/02 at 15:30 Morphine Sulfate (morphine) 2 mg Q4H PRN IV SEVERE PAIN LEVEL 7-10; Start 09/26 at 15:30 Magnesium Hydroxide (Milk Of Mag) 30 ml DAILY PRN PO CONSTIPATION Last administered on 10/01/16 17:08; Admin Dose 30 ML; Start 09/26/16 at 15:30 Bisacodyl (Dulcolax) 5 mg DAILY PRN PO CONSTIPATION Last administered on 17:19; Admin Dose 5 MG; Start 09/26/16 at 15:30 Pantoprazole (Protonix Tab) 40 mg DAILY@06 PO Last administered on 10/02/16 05 :04; Admin Dose 40 MG; Start 09/27/16 at 06:00 Ferrous Sulfate (Ferrous Sulfate (Ec)) 325 mg TID PO Last administered on 20:47; Admin Dose 325 MG; Start 09/26/16 at 21:00 Aspirin (Halfprin) 81 mg DAILY PO Last administered on 10/01/16 09:00; Admin Dose 81 MG; Start 09/27/16 at 11:00 BOBBY DELAROSA Oct 02, 2016 08:18
--- NOTE | 2016-10-02 13:25 | CONS ---
Date/Time of Note Date/Time of Note DATE: 10/02/16 TIME: 13:23 Assessment/Plan Assessment/Plan Chief Complaint/Hosp Course 45 yo with myeloproliferative disorder, currently on Jakafi 10mg BID for her splenomegaly and MDS. Pt presents with worsening weakness and is found to have a Hg 8.4. Per her records patient's baseline Hg is around 12. Her Hg has dropped to 8 and this is indicative of progressive disease. given that she does appear to have symptomatic anemia, I agree with the 1 units of PRBC. EGD reveals evidence of gastritis and esophageal varices which is likely contributing to her anemia. But her anemia is also likely in part to worsening of her bone marrow disease. Given her young age and advanced disease, she most certainly should be evaluate for a bone marrow transplant if she has not been evaluate already. I have spoken with her primary rapid transit operator Dr. Uli Mckee at [facility] who agrees with this. Of note, anemia panel reveals normal iron studies, nor evidence of vit b12 or folate deficiency. 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 Bone Marrow transplantations cannot be performed in the community nor do I manage these severe myelodysplastic syndromes in young patients. Pt therefore needs to be followed at a tertiary care center -if patient is referred to [facility], she can see Dr. Alin Marcial or Dr. Yesi Escobedo -pt may restart her Jakafi as an out patient -will need evaluate at a tertiary care center for bone marrow transplantation as her disease her progressing -given her h/o Budd Chiari syndrome will need to restart Aspirin and Warfarin . It is noted that with her active Myeloproliferative disorder, pt is at increased risk for recurrent clot. Ok to discharge once patient has f/u at bone marrow transplant center Approximately 40 min were spent at patient's bedside and in coordination of her care Problems: Consultation Date/Type/Reason Admit Date/Time Sep 26, 2016 at 15:16 Initial Consult Date 09/27/16 Type of Consultation: Hematology Reason for Consultation MDS Referring Provider: LEIA HERNANDEZ NP 24 HR Interval Summary Free Text/Dictation no acute overnight events Exam/Review of Systems Vital Signs Vitals Vital Signs Date Time Temp Pulse Resp B/P Pulse Ox O2 Delivery O2 Flow Rate FiO2 10/02/16 07:28 98.1 71 19 92/54 97 09/30/16 20:00 Room Air 09/28/16 19:35 2.0 Intake and Output 10/01/16 10/01/16 10/02/16 15:00 23:00 07:00 Intake Total 1000 ml 1520 ml 1000 ml Balance 1000 ml 1520 ml 1000 ml Exam Constitutional: alert, oriented Psych: nl mood/affect, no complaints Head: normocephalic Eyes: nl conjunctiva ENMT: nl external ears & nose Neck: non-tender, supple Respiratory: clear to auscultation, normal air movement Cardiovascular: regular rate and rhythm Gastrointestinal: soft Musculoskeletal: nl extremities to inspection, nl gait and stance Extremities: normal pulses Results Result Diagram: 10/02/16 0500 10/02/16 0500 Results 24 hrs Laboratory Tests Test 10/02/16 05:00 Anion Gap 13 Basophils # 0.0 Basophils % 0.4 Blood Morphology Comment Blood Urea Nitrogen 9 Calcium Level 8.8 Carbon Dioxide Level 27 Chloride Level 107 Creatinine 0.70 Eosinophils # 0.1 Eosinophils % 1.3 Glucose Level 110 Hematocrit 29.1 L Hemoglobin 9.6 L INR International Normalized Ratio 1.29 Lymphocytes # 0.6 L Lymphocytes % 14.7 L Mean Corpuscular Hemoglobin 25.1 L Mean Corpuscular Hemoglobin Concent 33.2 Mean Corpuscular Volume 75.7 L Mean Platelet Volume 7.5 Monocytes # 0.2 L Monocytes % 3.5 Neutrophils # 3.5 Neutrophils % 80.1 H Nucleated Red Blood Cells # 0.1 H Nucleated Red Blood Cells % 2.0 H Platelet Count 325 Potassium Level 4.1 Prothrombin Time 16.2 H Prothrombin Time Ratio 1.3 Red Blood Count 3.84 L Red Cell Distribution Width 30.2 H Sodium Level 143 White Blood Count 4.3 L Medications Medications Current Medications Dextrose/Sodium Chloride (D5-1/2ns) 1,000 ml @ 100 mls/hr Q10H IV Last administered on 10/02/16 05:00; Admin Dose 100 MLS/HR; Start 09/26/16 at 15:11 Ondansetron HCl (Zofran Inj) 4 mg Q6H PRN IV NAUSEA AND/OR VOMITING; Start 07/02 at 15:30 Acetaminophen/ Hydrocodone Bitart ([place] (5/325)) 1 tab Q6H PRN PO MODERATE PAIN LEVEL 4-6 Last administered on 09/29/16 22:25; Admin Dose 1 TAB; Start 07/02 at 15:30 Morphine Sulfate (morphine) 2 mg Q4H PRN IV SEVERE PAIN LEVEL 7-10; Start 09/26 at 15:30 Magnesium Hydroxide (Milk Of Mag) 30 ml DAILY PRN PO CONSTIPATION Last administered on 10/01/16 17:08; Admin Dose 30 ML; Start 09/26/16 at 15:30 Bisacodyl (Dulcolax) 5 mg DAILY PRN PO CONSTIPATION Last administered on 17:19; Admin Dose 5 MG; Start 09/26/16 at 15:30 Pantoprazole (Protonix Tab) 40 mg DAILY@06 PO Last administered on 10/02/16 05 :04; Admin Dose 40 MG; Start 09/27/16 at 06:00 Ferrous Sulfate (Ferrous Sulfate (Ec)) 325 mg TID PO Last administered on 08:14; Admin Dose 325 MG; Start 09/26/16 at 21:00 Aspirin (Halfprin) 81 mg DAILY PO Last administered on 10/02/16 08:14; Admin Dose 81 MG; Start 09/27/16 at 11:00 QUE LYONS M.D. Oct 02, 2016 13:25
--- NOTE | 2016-10-02 13:43 | PDOCDIS ---
Discharge Instructions DIAGNOSIS Discharge Diagnosis: 1. Microcytic hypochromic anemia 2. Budd-Chiari Syndrome 3. Myeloproliferat CONDITION Patient Condition: Stable HOME CARE INSTRUCTIONS: Special Diet: 2gm Na FOLLOW UP/APPOINTMENTS Appointments 1. Follow-up with her oncologist within a week SHANNON LOPEZ Oct 02, 2016 13:43
--- NOTE | 2016-10-02 14:09 | DS ---
Date/Time of Note Date/Time of Note DATE: 10/02/16 TIME: 13:54 Discharge Summary Admission/Discharge Info Admit Date/Time Sep 26, 2016 at 15:16 Discharge Date/Time Patient Condition: Stable Consults 1. Dr. Becky Almaraz 2. Dr. Marilyn Cisse 3. Lane Hart N.P. Hospital Course This is a 45-year-old female with history of Budd-Chiari syndrome, JAK2 myeloproliferative disorder, ascites, sputum, iron deficiency anemia who had TIPS procedure 2013 with a redo of stent thrombosis on 06/16/2015 and 2014 who came to [facility] due to reports of generalized fatigue and weakness and headache and poor appetite. Patient does get her care with her field staff at [facility] however due to insurance issue she has not been able to follow-up [facility]. Patient does report that she has been taking her Jakafi mediation. She denied any hematemesis or hematochezia or hematuria. She denies any vaginal bleeding. A shunt on further examination was found to have microcytic hyperchromic anemia with hemoglobin at 0.4 and hematocrit 25 initially. Patient was seen by field staff in the hospital. Patient did receive PRBC with good response. She was also worked up by polymer specialist for possible GI bleed. She did have EGD that did show evidence of gastritis and esophageal varices. Patient was otherwise optimized medically. Due to patient's age and after multidisciplinary consultation, it was advised for patient for tertiary care evaluation for possible bone marrow transplant concerning her anemia and history of Budd-Chiari syndrome/ myeloproliferative disorder. Case management was involved for this. During her course of stay she did improve. She did report less weakness on the day of her discharge. The plan of care was discussed with the patient and patient did verbalize her understanding. On the day of discharge patient was in stable condition Discussed plan of care with Dr. oRman Discharge process time is 40 minutes Disposition: Home with home health services Home Meds Active Scripts Aspirin/Caffeine/Butalbital* (Fiorinal*) 1 Cap Cap, 2 CAP PO Q6 for HEADACHE, # 30 CAP Prov:SHANNON LOPEZ 09/30/16 Hydrocodone Bit-Acetaminophen (Hydrocodone Bit-APAP) 5-325MG Tablet, 1 TAB PO Q6H Y for MODERATE PAIN LEVEL 4-6, #30 TAB Prov:SHANNON LOPEZ 09/30/16 Reported Medications Pantoprazole* (Pantoprazole*) 40 Mg Tablet.dr, 40 MG PO AC BREAKFAST, TAB 09/26/16 Aspirin* (Aspirin* Chew) 81 Mg Tab.chew, 81 MG PO DAILY, TAB.CHEW 09/26/16 Ruxolitinib Phosphate (Jakafi) 10 Mg Tablet, 10 MG PO BID, TAB 09/26/16 Warfarin Sodium* (Coumadin*) 10 Mg Tablet, 10 MG PO DAILY, TAB 09/26/16 Follow-up Plan CONDITION Patient Condition: Stable HOME CARE INSTRUCTIONS: Special Diet: 2gm Na FOLLOW UP/APPOINTMENTS Appointments 1. Follow-up with her oncologist within a week Pending Labs Laboratory Tests Test 10/02/16 05:00 Anion Gap 13 (8-16) Basophils # 0.010^3/ul (0.0-0.1) Basophils % 0.4% (0.0-2.0) Blood Morphology Comment Blood Urea Nitrogen 9mg/dl (7-20) Calcium Level 8.8mg/dl (8.4-10.2) Carbon Dioxide Level 27mmol/L (21-31) Chloride Level 107mmol/L (97-110) Creatinine 0.70mg/dl (0.44-1.00) Eosinophils # 0.110^3/ul (0.0-0.5) Eosinophils % 1.3% (0.0-7.0) Glucose Level 110mg/dl (70-220) Hematocrit 29.1% (37.0-47.0) Hemoglobin 9.6g/dl (12.0-16.0) INR International Normalized Ratio 1.29 Lymphocytes # 0.610^3/ul (0.8-2.9) Lymphocytes % 14.7% (15.0-51.0) Mean Corpuscular Hemoglobin 25.1pg (29.0-33.0) Mean Corpuscular Hemoglobin Concent 33.2g/dl (32.0-37.0) Mean Corpuscular Volume 75.7fl (82.0-101.0) Mean Platelet Volume 7.5fl (7.4-10.4) Monocytes # 0.210^3/ul (0.3-0.9) Monocytes % 3.5% (0.0-11.0) Neutrophils # 3.510^3/ul (1.6-7.5) Neutrophils % 80.1% (39.0-77.0) Nucleated Red Blood Cells # 0.110^3/ul (0.0-0.0) Nucleated Red Blood Cells % 2.0/100WBC (0.0-0.0) Platelet Count 76981^3/UL (140-440) Potassium Level 4.1mmol/L (3.5-5.1) Prothrombin Time 16.2Sec (12.2-14.2) Prothrombin Time Ratio 1.3 Red Blood Count 3.8410^6/ul (4.20-5.40) Red Cell Distribution Width 30.2% (11.5-14.5) Sodium Level 143mmol/L (135-144) White Blood Count 4.310^3/ul (4.8-10.8) SHANNON LOPEZ Oct 02, 2016 14:04
[2016-10-02] MEDS ORDERED: WARFARIN 7.5 MG TAB PO ONE (14:30)
== END 2016-10-02 14:45 | DRG 811 ==
LOC: E/R 11:07 → MS2 15:16
PROVIDERS: ADMIT Student in an Organized Health Care Education/Training Program; ATTEND Student in an Organized Health Care Education/Training Program
PROC: 30233N1 Transfusion of Nonautologous Red Blood Cells into Peripheral Vein, Percutaneous Approach (ICD-10-PCS; principal; 2016-09-27)
PROC: 0DB68ZX Excision of Stomach, Via Natural or Artificial Opening Endoscopic, Diagnostic (ICD-10-PCS; 2016-09-28)
DX: D50.8 Other iron deficiency anemias (principal); I82.0 Budd-Chiari syndrome; I85.10 Secondary esophageal varices without bleeding; K74.60 Unspecified cirrhosis of liver; D47.1 Chronic myeloproliferative disease; K92.2 Gastrointestinal hemorrhage, unspecified; Z79.82 Long term (current) use of aspirin; Z79.02 Long term (current) use of antithrombotics/antiplatelets; R16.1 Splenomegaly, not elsewhere classified; R51 Headache; E03.9 Hypothyroidism, unspecified; K29.60 Other gastritis without bleeding
CPT/HCPCS: 36430; 70450; 76705; 80048; 80053; 80061; 81003; 82140; 82270; 82607; 82652; 82728; 82746; 83010; 83036; 83540; 83615; 83690; 83735; 84100; 84155; 84165; 84439; 84443; 84703; 85025; 85045; 85610; 85730; 86644; 86850; 86900; 86901; 86920; 86945; 87081; 88305; 88312; 90686; J1940; J2405; J3030; J7040; J7042; P9016